=== PATIENT | female | born 1950 | race Caucasian/White ===

== ENCOUNTER 2019-06-01 13:34 | Outpatient (CLI) | payer MEDICARE, SELFPAY ==
--- NOTE | ~2019-06-01 | XR_ITS ---
XR chest 2V DATE: 06/01/2019 13:57 INDICATION: Cough, fever, chills TECHNIQUE: 2 views COMPARISON: 05/28/2014 2 view chest 06/23/2018 CT thorax FINDINGS: Normal heart size. There is aortic calcification and mild unfolding. No hilar or mediastina l enlargement. No pulmonary infiltrate or consolidation, pleural effusion or pulmonary vascular congestion or pneumo thorax is detected. Status post cholecystectomy. Levoscoliosis and mild degenerative change of the thoracic spine. Diffuse osteopenia. IMPRESSION: No active cardiopulmonary disease Aortic atherosclerosis Reviewed, dictated and finalized at location B.
[2019-06-01 13:47] LABS: Basophils Absolute Auto 0.05 K/mm3 (0.00-0.10); Basophils Percent Auto 0.6 % (0.0-1.0); Eosinophils Absolute Auto 0.17 K/mm3 (0.02-0.50); Eosinophils Percent Auto 2.1 % (1.0-6.0); Hematocrit 37.6 % (35.0-42.0); Hemoglobin 12.4 g/dL (11.7-13.8); Immature Granulocyte Absolute 0.05 K/mm3 (0.00-0.00); Immature Granulocyte Percent A 0.6 % (0.0-0.0); Lymphocytes Absolute Auto 2.04 K/mm3 (1.10-4.50); Lymphocytes Percent Auto 24.9 % (18.0-42.0); Mean Corpuscular Volume 90.8 fL (78.0-102.0); Mean Platelet Volume 9.7 fl (9.2-11.8); Monocytes Absolute Auto 0.67 K/mm3 (0.10-0.90); Monocytes Percent Auto 8.2 % (2.0-11.0); Neutrophils Absolute Auto 5.2 K/mm3 (1.7-7.2); Neutrophils Percent Auto 63.6 % (50.0-70.0); Platelet Count Result 347 K/mm3 (150-420); Red Blood Count 4.14 M/mm3 (4.20-5.40); Red Cell Distribution Width 12.4 % (11.6-14.4); White Blood Count 8.2 K/mm3 (4.8-10.8)
[2019-06-01 14:02] LABS: Alanine Aminotransferase 26 U/L (14-59); Albumin Level 3.4 g/dL (3.4-5.0); Alkaline Phosphatase 120 U/L (46-116); Aspartate Amino Transferase 25 U/L (15-37); Bilirubin,Total 0.4 mg/dL (0.00-1.00); Blood Urea Nitrogen 14 mg/dL (7-18); Calcium 8.9 mg/dL (8.5-10.1); Carbon Dioxide 27 mmol/L (21-32); Chloride 101 mmol/L (98-108); Estimated Glomerular Filt Rate 38; Glucose 140 mg/dL (70-99); Osmolality Calculated 284 mOsm/kg (285-295); Sodium 136 mmol/L (136-145); Total Protein 8.1 g/dL (6.4-8.2)
[2019-06-01 14:07] LABS: Influenza Control Valid (Valid)
== END 2019-06-01 13:35 | disposition home or self-care (01) ==
LOC: CHSLAB 13:38
PROVIDERS: PCP Internal Medicine; Visit Provider Internal Medicine
DX: R05 Cough (principal); R50.9 Fever, unspecified
CPT/HCPCS: 36415; 71046; 80053; 85025; 86140; 87081; 87804; 87880

== ENCOUNTER 2019-07-27 08:45 | Outpatient (CLI) | payer MEDICARE, SELFPAY ==
--- NOTE | ~2019-07-27 | CT_ITS ---
EXAMINATION: CT abdomen pelvis wo con DATE: 07/27/2019 09:07 INDICATION: Malignant neoplasm of the right kidney TECHNIQUE: Computed tomography (CT) of the abdomen and pelvis was performed without intravenous contr ast. The dose-length product (DLP) was 502.36 mGy-cm. Automated exposure control and iterative recons truction technique were employed. COMPARISON: 07/04/2017 FINDINGS: The lung bases are clear. The heart size is normal. There is a small sliding hiatal hernia. The gallbladder is surgically absent. There is mild enlargement of the common bile duct and central intrahepatic ducts which is likely due to post cholecystectomy state. The liver, spleen, pancreas, an d left adrenal gland are normal. The right kidney and right adrenal gland are surgically absent. The left kidney is unremarkable. There is calcified atherosclerosis of the aorta and many of the other ar teries. No pathologically enlarged abdominal or pelvic lymph nodes are identified. There is no free i ntraperitoneal gas or evidence of bowel obstruction. There are changes of left inguinal hernia repair . There is mild lumbar spondylosis. There is a tiny fat-containing umbilical hernia. IMPRESSION: 1. Changes of right nephrectomy and right adrenalectomy without evidence of recurrent or metastatic d isease. Reviewed, dictated and finalized at location A. IMPRESSION: 1. Changes of right nephrectomy and right adrenalectomy without evidence of rec urrent or metastatic disease.
[2019-07-27 10:30] LABS: Alanine Aminotransferase 33 U/L (14-59); Albumin Level 3.8 g/dL (3.4-5.0); Alkaline Phosphatase 120 U/L (46-116); Anion Gap 14.4 mmol/L (7-16); Aspartate Amino Transferase 41 U/L (15-37); Bilirubin,Total 0.4 mg/dL (0.00-1.00); Blood Urea Nitrogen 17 mg/dL (7-18); Carbon Dioxide 27 mmol/L (21-32); Chloride 103 mmol/L (98-108); Estimated Glomerular Filt Rate 37; Glucose 93 mg/dL (70-99); Osmolality Calculated 291 mOsm/kg (285-295); Potassium 4.4 mmol/L (3.5-5.1); Sodium 140 mmol/L (136-145); Total Protein 7.2 g/dL (6.4-8.2)
== END 2019-07-27 08:46 | disposition home or self-care (01) ==
PROVIDERS: PCP Internal Medicine
DX: C64.9 Malignant neoplasm of unspecified kidney, except renal pelvis (principal)
CPT/HCPCS: 36415; 74176; 80053

== ENCOUNTER 2019-11-06 08:03 | Outpatient (CLI) | payer MEDICARE, SELFPAY ==
[2019-11-06 08:13] LABS: Basophils Absolute Auto 0.05 K/mm3 (0.00-0.10); Basophils Percent Auto 0.7 % (0.0-1.0); Eosinophils Absolute Auto 0.23 K/mm3 (0.02-0.50); Eosinophils Percent Auto 3.4 % (1.0-6.0); Hematocrit 43.2 % (35.0-42.0); Hemoglobin 14.2 g/dL (11.7-13.8); Immature Granulocyte Absolute 0.03 K/mm3 (0.00-0.00); Immature Granulocyte Percent A 0.4 % (0.0-0.0); Lymphocytes Absolute Auto 1.89 K/mm3 (1.10-4.50); Lymphocytes Percent Auto 28.3 % (18.0-42.0); Mean Corpuscular HGB Conc 32.9 g/dL (32.0-36.0); Mean Corpuscular Hemoglobin 30.7 pg (27.0-31.0); Mean Corpuscular Volume 93.3 fL (78.0-102.0); Mean Platelet Volume 10.9 fl (9.2-11.8); Monocytes Percent Auto 7.5 % (2.0-11.0); Neutrophils Percent Auto 59.7 % (50.0-70.0); Platelet Count Result 228 K/mm3 (150-420); Red Blood Count 4.63 M/mm3 (4.20-5.40); Red Cell Distribution Width 12.2 % (11.6-14.4); White Blood Count 6.7 K/mm3 (4.8-10.8)
[2019-11-06 08:16] LABS: Appearance Urine Clear (Clear); Bilirubin Urine Negative (Negative); Color Urine Yellow (Yellow); Glucose Urine UA Negative (Negative); Ketones Urine Negative (Negative); Leukocyte Esterase Ur Negative LEU/UL (Negative); Nitrate Urine Negative (Negative); Protein Urine Negative (Negative); Urobilinogen Urine 0.2 mg/dL (0.2-1.0)
[2019-11-06 08:23] LABS: Add Urine Microscopic? YES; Bacteria Urine Trace /hpf; Blood Urine Trace-Intact (Negative); RBC Urine None seen /hpf (0-2); Squamous Epithelial Cell Urine Few /hpf (Few); WBC Urine None seen /hpf (0-3)
[2019-11-06 09:18] LABS: Alanine Aminotransferase 33 U/L (14-59); Albumin Level 4.1 g/dL (3.4-5.0); Alkaline Phosphatase 114 U/L (46-116); Anion Gap 10 mmol/L (8-16); Aspartate Amino Transferase 44 U/L (15-37); Bilirubin,Total 0.6 mg/dL (0.00-1.00); Blood Urea Nitrogen 20 mg/dL (7-18); Calcium 9.1 mg/dL (8.5-10.1); Carbon Dioxide 28 mmol/L (21-32); Chloride 104 mmol/L (98-108); Cholesterol 153 mg/dL (0-200); Estimated Glomerular Filt Rate 36; Free T4 Free Thyroxine 1.24 ng/dL (0.76-1.46); Glucose 98 mg/dL (70-99); HDL Direct 40 mg/dL (40-60); LDL Cholesterol Calculated 81 mg/dL (<130); Osmolality Calculated 296 mOsm/kg (285-295); Sodium 142 mmol/L (136-145); Thyroid Stimulating Hormone 0.52 uIU/mL (0.36-3.74); Total Protein 7.6 g/dL (6.4-8.2); Triglycerides 158 mg/dL (0-150)
== END 2019-11-06 08:04 | disposition home or self-care (01) ==
LOC: CHSLAB 08:05
PROVIDERS: PCP Internal Medicine; Visit Provider Internal Medicine
DX: E03.9 Hypothyroidism, unspecified (principal); E78.5 Hyperlipidemia, unspecified; I10 Essential (primary) hypertension; R73.01 Impaired fasting glucose
CPT/HCPCS: 36415; 80053; 80061; 81001; 83036; 84439; 84443; 85025

== ENCOUNTER 2020-07-06 08:06 | Outpatient (CLI) | payer MEDICARE, SELFPAY ==
[2020-07-06 08:35] LABS: Basophils Absolute Auto 0.07 K/mm3 (0.00-0.10); Eosinophils Absolute Auto 0.28 K/mm3 (0.02-0.50); Hematocrit 38.4 % (35.0-42.0); Hemoglobin 12.6 g/dL (11.7-13.8); Immature Granulocyte Absolute 0.03 K/mm3 (0.00-0.00); Immature Granulocyte Percent A 0.4 % (0.0-0.0); Lymphocytes Absolute Auto 1.82 K/mm3 (1.10-4.50); Lymphocytes Percent Auto 25.9 % (18.0-42.0); Mean Corpuscular HGB Conc 32.8 g/dL (32.0-36.0); Mean Corpuscular Volume 94.6 fL (78.0-102.0); Mean Platelet Volume 10.2 fl (9.2-11.8); Monocytes Absolute Auto 0.56 K/mm3 (0.10-0.90); Neutrophils Absolute Auto 4.3 K/mm3 (1.7-7.2); Neutrophils Percent Auto 60.7 % (50.0-70.0); Platelet Count Result 313 K/mm3 (150-420); Red Blood Count 4.06 M/mm3 (4.20-5.40); Red Cell Distribution Width 12.7 % (11.6-14.4)
[2020-07-06 08:41] LABS: Add Urine Microscopic? NO; Appearance Urine Clear (Clear); Bilirubin Urine Negative (Negative); Blood Urine Negative (Negative); Color Urine Yellow (Yellow); Glucose Urine UA Negative (Negative); Ketones Urine Negative (Negative); Leukocyte Esterase Ur Negative LEU/UL (Negative); Nitrate Urine Negative (Negative); Protein Urine Negative (Negative); Specific Grav Ur 1.015 (1.010-1.020); Urobilinogen Urine 0.2 mg/dL (0.2-1.0); pH Urine 5.5 (5.0-8.0)
[2020-07-06 08:47] LABS: Hemoglobin A1C 5.2 % (<5.7)
[2020-07-06 08:49] LABS: Creatinine Urine 76.83 mg/dL (40-278); MALB Creatinine Ratio 127.5 mg/g (0-30)
[2020-07-06 09:35] LABS: Alanine Aminotransferase 28 U/L (14-59); Albumin Level 3.7 g/dL (3.4-5.0); Alkaline Phosphatase 118 U/L (46-116); Anion Gap 9 mmol/L (8-16); Aspartate Amino Transferase 30 U/L (15-37); Bilirubin,Total 0.4 mg/dL (0.00-1.00); Blood Urea Nitrogen 19 mg/dL (7-18); Calcium 9.2 mg/dL (8.5-10.1); Carbon Dioxide 28 mmol/L (21-32); Chloride 103 mmol/L (98-108); Cholesterol 142 mg/dL (0-200); Creatine Kinase 127 U/L (26-192); Estimated Glomerular Filt Rate 43; Free T3 2.09 pg/mL (2.18-3.98); Free T4 Free Thyroxine 1.21 ng/dL (0.76-1.46); Glucose 99 mg/dL (70-99); HDL Direct 45 mg/dL (40-60); LDL Cholesterol Calculated 78 mg/dL (<130); Osmolality Calculated 292 mOsm/kg (285-295); Potassium 4.9 mmol/L (3.5-5.1); Sodium 140 mmol/L (136-145); Thyroid Stimulating Hormone 1.52 uIU/mL (0.36-3.74); Total Protein 7.4 g/dL (6.4-8.2); Triglycerides 96 mg/dL (0-150)
== END 2020-07-06 08:07 | disposition home or self-care (01) ==
LOC: CHSLAB 08:07
PROVIDERS: PCP Internal Medicine; Visit Provider Internal Medicine
DX: E03.4 Atrophy of thyroid (acquired) (principal); I10 Essential (primary) hypertension; E78.2 Mixed hyperlipidemia; R73.01 Impaired fasting glucose; N39.0 Urinary tract infection, site not specified
CPT/HCPCS: 36415; 80053; 80061; 81003; 82043; 82550; 83036; 84439; 84443; 84481; 85025

== ENCOUNTER 2020-08-09 09:37 | Outpatient (CLI) | payer MEDICARE, SELFPAY ==
[2020-08-09 10:28] LABS: Influenza A QL RT-PCR Negative (Negative); Influenza B QL RT-PCR Negative (Negative); SARS-CoV-2 RNA PCR Negative (Negative)
== END 2020-08-09 09:38 | disposition home or self-care (01) ==
LOC: CHSLAB 09:39
PROVIDERS: PCP Internal Medicine; Visit Provider Internal Medicine
DX: R06.02 Shortness of breath (principal); R50.9 Fever, unspecified; R05 Cough; Z20.822 Contact with and (suspected) exposure to COVID-19
CPT/HCPCS: 87502; C9803; U0003; U0005

== ENCOUNTER 2020-08-10 09:19 | Outpatient (CLI) | payer MEDICARE, SELFPAY ==
--- NOTE | ~2020-08-10 | CT_ITS ---
EXAMINATION:CT lung screening DATE: 08/10/2020 10:50 INDICATION: Personal history of tobacco dependence. Smoker who quit 12 years ago with 40 pack year hi story. TECHNIQUE: Computed tomography (CT) of the chest was performed without intravenous contrast. Automate d exposure control and iterative reconstruction technique were employed. The dose-length product (DLP ) was 129.40 mGy-cm. COMPARISON: Chest CT 06/23/2018 FINDINGS: There is mild emphysema. There is a staple line in right upper lobe. There are patchy airsp bryce and groundglass opacities and centrilobular nodules involving the lower lobes and left upper lobe , consistent with pneumonia. There is a trace left pleural effusion. The heart size is normal. There are coronary artery calcifications. No pericardial effusion. There is new mild mediastinal lymphadeno avis, likely reactive. There are changes of cholecystectomy. There are changes of at least partial r esection of right adrenal gland. There is severe thoracic spondylosis. IMPRESSION: 1. Lung-RADS category 4A: Suspicious. Note that the findings are likely completely or mostly due to m ultifocal pneumonia. Noncontrast, low-dose chest CT is recommended in 3 months. Reviewed, dictated and finalized at location B. IMPRESSION: 1. Lung-RADS category 4A: Suspicious. Note that the findings are likely complet anupam or mostly due to multifocal pneumonia. Noncontrast, low-dose chest CT is re commended in 3 months.
--- NOTE | ~2020-08-10 | MM_ITS ---
EXAMINATION: MM screening charlie BI w sonali HISTORY: Screening mammogram, family history of breast cancer in her sister. TECHNIQUE: Craniocaudal and mediolateral oblique 3-D tomosynthesis images were obtained and synthetic 2-D images were generated. CAD analysis was submitted and interpreted. COMPARISON: 12/31/2017, 11/21/2016 BREAST PARENCHYMAL COMPOSITION: The breasts are heterogeneously dense, which may obscure small masses . FINDINGS: There is no evidence of suspicious mass, calcification, or architectural distortion to sugg est malignancy in either breast. There has been no suspicious interval change. IMPRESSION: 1. No mammographic evidence of malignancy. 2. Recommend routine screening mammography in one year. BI-RADS Category 1: Negative Reviewed, dictated and finalized at location A.
--- NOTE | ~2020-08-10 | US_ITS ---
EXAMINATION: US carotid duplex BI DATE: 08/10/2020 12:29 INDICATION: Carotid stenosis TECHNIQUE: Grayscale, color Doppler, and pulsed Doppler images of the cervical carotid arteries were obtained. The degree of vessel stenosis is placed in one of the following categories: normal, <50%, 5 0-69%, >=70% but less than near-occlusion, near-occlusion, or total occlusion. Note that percent sten osis relative to normal distal artery lumen diameter is indirectly measured from velocity measurement s as described by Gabriel, et al. Radiology 2003; 229:340-346. COMPARISON: None. FINDINGS: RIGHT: The right common carotid artery (CCA) peak systolic velocity (PSV) is 73 cm/s. The right internal car otid artery (ICA) PSV is 86 cm/s. The right ICA end-diastolic velocity (EDV) is 21 cm/s. The right IC A/CCA PSV ratio is 1.2. Grayscale and color Doppler images yield an estimate of <50% diameter reducti on from plaque in the ICA. The external carotid artery (ECA) PSV is 52 cm/s. There is antegrade flow in the right vertebral artery. LEFT: The left CCA PSV is 169 cm/s. The left ICA PSV is 79 cm/s. The left ICA EDV is 22 cm/s. The left ICA/ CCA PSV ratio is 0.5. Grayscale and color Doppler images yield an estimate of <50% diameter reduction from plaque in the ICA. The ECA PSV is 126 cm/s. There appears be antegrade flow in the more caudal left vertebral artery with retrograde flow more cephalad on the other side of a shadowing portion of a cervical vertebrae. It is unclear whether these both represent portions of the same vertebral arter y or whether one of the 2 artery segments represents an artery other than the vertebral artery. IMPRESSION: 1. <50% stenosis in the right internal carotid artery. 2. <50% stenosis in the left internal carotid artery. 3. Indeterminate assessment of the left vertebral artery with separate arterial segments in the expec jj region of the vertebral artery, one showing antegrade flow and the second showing retrograde flow . If this would affect clinical management could consider carotid CT angiogram for further evaluation . Reviewed, dictated and finalized at location A. IMPRESSION: 1. <50% stenosis in the right internal carotid artery. 2. <50% stenosis in the left internal carotid artery. 3. Indeterminate assessment of the left vertebral artery with separate arterial segments in the expected region of the vertebral artery, one showing antegrade flow and the second showing retrograde flow. If this would affect clinical man agement could consider carotid CT angiogram for further evaluation.
--- NOTE | ~2020-08-10 | DEXA_ITS ---
Bone Density Report Name: Stacy Pina Age: 69 Sex: Female Ethnicity: White Date of : 1950 Indication: postmenopausal; screening for osteoporosis; height loss; cancer; asthma or emphysema; hysterectomy; Referring Provider: Laine Echeverria Study: Bone densitometry was performed. Exam Date: August 10, 2020 Accession number: [id number] Bone Density: Region BMD T-score Z-score Classification AP Spine(L1, L2, L3) 0.923 -0.9 1.2 Normal Femoral Neck (Left) 0.737 -1.0 0.8 Normal Total Hip (Left) 0.810 -1.1 0.5 Osteopenia Femoral Neck (Right) 0.763 -0.8 1.1 Normal Total Hip (Right) 0.841 -0.8 0.7 Normal Femoral Neck Mean 0.750 -0.9 0.9 Normal Total Hip Mean 0.826 -1.0 0.6 Normal World Health Organization criteria for BMD impression classify patients as: Normal (T-score at or above -1.0), Osteopenia (T-score between -1.0 and -2.5), or Osteoporosis (T-score at or below -2.5). 10-year Fracture Risk(1): Major Osteoporotic Fracture 8.9% Hip Fracture 1.0% Reported Risk Factors: [place] (), Neck BMD=0.737, BMI=24.4 (1) FRAX(R) Version 3.08. Fracture probability calculated for an untreated patient. Fracture probability may be lower if the patient has received treatment. Previous Exams: Region Exam Age BMD T-score BMD Change BMD Change Date g/cm2 vs Baseline vs Previous AP Spine (L1-L3) 08/10/2020 69 0.923 -0.9 0.020 (2.2%)# 0.020 (2.2%)# 11/21/2016 66 0.904 -1.0 Total Hip(Left) 08/10/2020 69 0.810 -1.1 -0.043 (-5.0%) -0.043 (-5.0%) 11/21/2016 66 0.853 -0.7 *Denotes significance at 95% confidence level, LSC for AP Spine = 0.022 g/cm2, LSC for Total Hip = 0.027 g/cm2 # Denotes dissimilar scan types or analysis methods Clinical Information Provided by Patient: Has used the following medications: Vitamin D Has the following medical conditions: Asthma or Emphysema, Cancer, Hysterectomy Patient maximum height was 142 No regular weight bearing exercise Drinks caffeinated beverages Onset of menses at age 12 Number of children 2 Impression: The patient has low bone mass, based on the Left Total Hip T-score. No significant bone loss was observed. Discussion: BONE DENSITY IS LOW AT ONE OR MORE SKELETAL SITES. This patient's lowest T-score is low at one or more skeletal sites. It meets the World Health Organization's (WHO) criteria for ?low bone mass? (T-score between -1.0 and -2.5). The patient's 10-year risk of fracture as calcul
[2020-08-10 14:50] LABS: Basophils Absolute Auto 0.06 K/mm3 (0.00-0.10); Basophils Percent Auto 0.5 % (0.0-1.0); Eosinophils Absolute Auto 0.24 K/mm3 (0.02-0.50); Eosinophils Percent Auto 1.8 % (1.0-6.0); Hematocrit 32.8 % (35.0-42.0); Hemoglobin 10.7 g/dL (11.7-13.8); Immature Granulocyte Absolute 0.12 K/mm3 (0.00-0.00); Immature Granulocyte Percent A 0.9 % (0.0-0.0); Lymphocytes Absolute Auto 2.46 K/mm3 (1.10-4.50); Lymphocytes Percent Auto 18.9 % (18.0-42.0); Mean Corpuscular HGB Conc 32.6 g/dL (32.0-36.0); Mean Corpuscular Hemoglobin 29.8 pg (27.0-31.0); Mean Corpuscular Volume 91.4 fL (78.0-102.0); Mean Platelet Volume 9.5 fl (9.2-11.8); Monocytes Absolute Auto 0.98 K/mm3 (0.10-0.90); Monocytes Percent Auto 7.5 % (2.0-11.0); Neutrophils Absolute Auto 9.2 K/mm3 (1.7-7.2); Neutrophils Percent Auto 70.4 % (50.0-70.0); Platelet Count Result 341 K/mm3 (150-420); Red Blood Count 3.59 M/mm3 (4.20-5.40); Red Cell Distribution Width 12.6 % (11.6-14.4)
[2020-08-10 15:59] LABS: Alanine Aminotransferase 30 U/L (14-59); Alkaline Phosphatase 110 U/L (46-116); Anion Gap 10 mmol/L (8-16); Aspartate Amino Transferase 32 U/L (15-37); Bilirubin,Total 0.3 mg/dL (0.00-1.00); Blood Urea Nitrogen 11 mg/dL (7-18); Calcium 8.2 mg/dL (8.5-10.1); Carbon Dioxide 25 mmol/L (21-32); Chloride 104 mmol/L (98-108); Estimated Glomerular Filt Rate 46; Glucose 104 mg/dL (70-99); Osmolality Calculated 287 mOsm/kg (285-295); Sodium 139 mmol/L (136-145); Total Protein 6.5 g/dL (6.4-8.2)
== END 2020-08-10 09:20 | disposition home or self-care (01) ==
PROVIDERS: PCP Internal Medicine; Visit Provider Internal Medicine
DX: J18.9 Pneumonia, unspecified organism (principal); Z12.2 Encounter for screening for malignant neoplasm of respiratory organs; Z87.891 Personal history of nicotine dependence; M81.0 Age-related osteoporosis without current pathological fracture; I65.29 Occlusion and stenosis of unspecified carotid artery; Z12.31 Encounter for screening mammogram for malignant neoplasm of breast
CPT/HCPCS: 36415; 71271; 77063; 77067; 77080; 80053; 85025; 93880

== ENCOUNTER 2020-08-19 12:31 | Outpatient (CLI) | payer MEDICARE, SELFPAY ==
--- NOTE | ~2020-08-19 | XR_ITS ---
EXAMINATION: XR chest 2V EXAM DATE: 08/19/2020 12:52 INDICATION: Pneumonia follow up, cough . TECHNIQUE: Frontal and lateral projections of the chest obtained and reviewed. Comparison is made to prior examination from 06/01/2019. FINDINGS: Small amount of left midlung zone reticulonodular airspace disease, probably small residua l postinfectious process from pneumonia identified last month on CT. The lungs are otherwise clear. There are no pleural effusions. The cardiomediastinal silhouette is within normal limits. There is no pneumothorax suspected. Mild thoracolumbar scoliosis. There are cholecystectomy clips. IMPRESSION: Small amount of left midlung zone residual pneumonia. Follow-up chest low dose chest CT i n 3 months time still indicated. Reviewed, dictated and finalized at location B. IMPRESSION: Small amount of left midlung zone residual pneumonia. Follow-up liana st low dose chest CT in 3 months time still indicated.
[2020-08-19 12:42] LABS: Basophils Absolute Auto 0.07 K/mm3 (0.00-0.10); Basophils Percent Auto 0.7 % (0.0-1.0); Eosinophils Absolute Auto 0.27 K/mm3 (0.02-0.50); Eosinophils Percent Auto 2.7 % (1.0-6.0); Hematocrit 34.7 % (35.0-42.0); Hemoglobin 11.5 g/dL (11.7-13.8); Immature Granulocyte Absolute 0.05 K/mm3 (0.00-0.00); Immature Granulocyte Percent A 0.5 % (0.0-0.0); Lymphocytes Absolute Auto 2.03 K/mm3 (1.10-4.50); Lymphocytes Percent Auto 20.4 % (18.0-42.0); Mean Corpuscular HGB Conc 33.1 g/dL (32.0-36.0); Mean Corpuscular Hemoglobin 30.4 pg (27.0-31.0); Mean Corpuscular Volume 91.8 fL (78.0-102.0); Mean Platelet Volume 9.7 fl (9.2-11.8); Monocytes Absolute Auto 0.79 K/mm3 (0.10-0.90); Monocytes Percent Auto 7.9 % (2.0-11.0); Neutrophils Absolute Auto 6.8 K/mm3 (1.7-7.2); Neutrophils Percent Auto 67.8 % (50.0-70.0); Platelet Count Result 360 K/mm3 (150-420); Red Blood Count 3.78 M/mm3 (4.20-5.40); Red Cell Distribution Width 12.7 % (11.6-14.4)
[2020-08-19 13:14] LABS: Alanine Aminotransferase 24 U/L (14-59); Albumin Level 3.3 g/dL (3.4-5.0); Alkaline Phosphatase 109 U/L (46-116); Anion Gap 13 mmol/L (8-16); Aspartate Amino Transferase 26 U/L (15-37); Bilirubin,Total 0.3 mg/dL (0.00-1.00); Blood Urea Nitrogen 25 mg/dL (7-18); Calcium 8.6 mg/dL (8.5-10.1); Carbon Dioxide 24 mmol/L (21-32); Chloride 100 mmol/L (98-108); Estimated Glomerular Filt Rate 35; Glucose 96 mg/dL (70-99); Osmolality Calculated 288 mOsm/kg (285-295); Potassium 4.6 mmol/L (3.5-5.1); Sodium 137 mmol/L (136-145); Total Protein 6.8 g/dL (6.4-8.2)
== END 2020-08-19 12:32 | disposition home or self-care (01) ==
LOC: CHSIMG 12:33
PROVIDERS: PCP Internal Medicine; Visit Provider Internal Medicine
DX: J18.9 Pneumonia, unspecified organism (principal)
CPT/HCPCS: 36415; 71046; 80053; 85025

== ENCOUNTER 2020-09-02 12:17 | Outpatient (CLI) | payer MEDICARE, SELFPAY ==
--- NOTE | ~2020-09-02 | XR_ITS ---
XR chest 2V 09/02/2020 12:33 Indication: Pneumonia. Shortness of breath. Procedure: 08/19/2020 Comparison: 08/19/2020 Findings: Right middle lobe airspace disease, compatible with pneumonia. No pleural effusion, edema o r pneumothorax. Impression: 1: Right middle lobe airspace disease, compatible with pneumonia. Reviewed, dictated and finalized at location A. Impression: 1: Right middle lobe airspace disease, compatible with pneumonia.
[2020-09-02 13:40] LABS: Alanine Aminotransferase 24 U/L (14-59); Albumin Level 3.5 g/dL (3.4-5.0); Alkaline Phosphatase 103 U/L (46-116); Anion Gap 12 mmol/L (8-16); Aspartate Amino Transferase 28 U/L (15-37); Bilirubin,Total 0.6 mg/dL (0.00-1.00); Blood Urea Nitrogen 22 mg/dL (7-18); Calcium 8.6 mg/dL (8.5-10.1); Carbon Dioxide 24 mmol/L (21-32); Chloride 101 mmol/L (98-108); Estimated Glomerular Filt Rate 37; Glucose 98 mg/dL (70-99); Osmolality Calculated 287 mOsm/kg (285-295); Potassium 4.3 mmol/L (3.5-5.1); Sodium 137 mmol/L (136-145); Total Protein 6.8 g/dL (6.4-8.2)
== END 2020-09-02 12:18 | disposition home or self-care (01) ==
LOC: CHSLAB 12:19
PROVIDERS: PCP Internal Medicine; Visit Provider Internal Medicine
DX: R79.89 Other specified abnormal findings of blood chemistry (principal); Z51.89 Encounter for other specified aftercare; J18.9 Pneumonia, unspecified organism
CPT/HCPCS: 36415; 71046; 80053

== ENCOUNTER 2020-10-05 10:00 | Outpatient (CLI) | payer MEDICARE, SELFPAY ==
--- NOTE | ~2020-10-05 | XR_ITS ---
XR chest 2V DATE: 10/05/2020 10:23 INDICATION: Pneumonia follow-up. History of right lung surgery. TECHNIQUE: PA and lateral views COMPARISON: 09/02/2020 2 view chest FINDINGS: There is interval resolution of the middle lobe infiltrate or atelectasis in 09/02/2020. Moderate hyperinflation of the lungs. Sutures from lung resection are noted in the posterior right upper lung field. No pulmonary infiltrate or consolidation, pleural effusion or pulmonary vascular congestion or pneumo thorax. Normal heart size. Is aortic calcification and mild unfolding. Surgical clips, right upper quadrant, likely due to cholecystectomy. Diffuse osteopenia. IMPRESSION: Resolution of middle lobe infiltrate or atelectasis since 09/02/2020 Postoperative change of right lung Reviewed, dictated and finalized at location A.
== END 2020-10-05 10:01 | disposition home or self-care (01) ==
LOC: CHSIMG 10:03
PROVIDERS: PCP Internal Medicine; Visit Provider Internal Medicine
DX: J18.9 Pneumonia, unspecified organism (principal)
CPT/HCPCS: 71046

== ENCOUNTER 2021-02-24 08:48 | Outpatient (CLI) | payer MEDICARE, SELFPAY ==
[2021-02-24 09:09] LABS: Basophils Absolute Auto 0.06 K/mm3 (0.00-0.10); Basophils Percent Auto 0.7 % (0.0-1.0); Eosinophils Absolute Auto 0.38 K/mm3 (0.02-0.50); Eosinophils Percent Auto 4.7 % (1.0-6.0); Hematocrit 41.3 % (35.0-42.0); Hemoglobin 13.4 g/dL (11.7-13.8); Immature Granulocyte Absolute 0.03 K/mm3 (0.00-0.00); Immature Granulocyte Percent A 0.4 % (0.0-0.0); Lymphocytes Absolute Auto 1.51 K/mm3 (1.10-4.50); Lymphocytes Percent Auto 18.6 % (18.0-42.0); Mean Corpuscular HGB Conc 32.4 g/dL (32.0-36.0); Mean Corpuscular Volume 92.4 fL (78.0-102.0); Mean Platelet Volume 10.5 fl (9.2-11.8); Monocytes Absolute Auto 0.67 K/mm3 (0.10-0.90); Monocytes Percent Auto 8.2 % (2.0-11.0); Neutrophils Absolute Auto 5.5 K/mm3 (1.7-7.2); Neutrophils Percent Auto 67.4 % (50.0-70.0); Platelet Count Result 280 K/mm3 (150-420); Red Blood Count 4.47 M/mm3 (4.20-5.40); Red Cell Distribution Width 12.6 % (11.6-14.4); White Blood Count 8.1 K/mm3 (4.8-10.8)
[2021-02-24 09:14] LABS: Appearance Urine Clear (Clear); Bilirubin Urine Negative (Negative); Color Urine Light Yellow (Yellow); Glucose Urine UA Negative (Negative); Ketones Urine Negative (Negative); Leukocyte Esterase Ur Negative (Negative); Nitrate Urine Negative (Negative); Protein Urine Negative (Negative); Specific Grav Ur 1.015 (1.010-1.020); Urobilinogen Urine 0.2 mg/dL (0.2-1.0)
[2021-02-24 09:27] LABS: Add Urine Microscopic? YES; Blood Urine Trace-Intact (Negative); Hemoglobin A1C 5.9 % (<5.7); Squamous Epithelial Cell Urine Few /hpf (Few); WBC Urine 0-3 /hpf (0-3)
[2021-02-24 09:28] LABS: Bacteria Urine Trace /hpf
[2021-02-24 10:13] LABS: Alanine Aminotransferase 28 U/L (14-59); Albumin Level 3.7 g/dL (3.4-5.0); Alkaline Phosphatase 125 U/L (46-116); Anion Gap 9 mmol/L (8-16); Aspartate Amino Transferase 33 U/L (15-37); Bilirubin,Total 0.5 mg/dL (0.00-1.00); Blood Urea Nitrogen 17 mg/dL (7-18); Carbon Dioxide 29 mmol/L (21-32); Chloride 102 mmol/L (98-108); Cholesterol 189 mg/dL (0-200); Creatine Kinase 190 U/L (26-192); Estimated Glomerular Filt Rate 39; Free T4 Free Thyroxine 1.05 ng/dL (0.76-1.46); Glucose 91 mg/dL (70-99); HDL Direct 56 mg/dL (40-60); LDL Cholesterol Calculated 101 mg/dL (<130); Osmolality Calculated 291 mOsm/kg (285-295); Potassium 4.5 mmol/L (3.5-5.1); Sodium 140 mmol/L (136-145); Thyroid Stimulating Hormone 1.92 uIU/mL (0.36-3.74); Total Protein 7.6 g/dL (6.4-8.2); Triglycerides 162 mg/dL (0-150)
== END 2021-02-24 08:49 | disposition home or self-care (01) ==
LOC: CHSLAB 08:50
PROVIDERS: PCP Internal Medicine; Visit Provider Internal Medicine
DX: M81.0 Age-related osteoporosis without current pathological fracture (principal); R73.01 Impaired fasting glucose; E78.2 Mixed hyperlipidemia; E03.4 Atrophy of thyroid (acquired); N18.2 Chronic kidney disease, stage 2 (mild)
CPT/HCPCS: 36415; 80053; 80061; 81001; 82550; 83036; 84439; 84443; 85025

== ENCOUNTER 2021-03-20 10:50 | Outpatient (CLI) | payer MEDICARE, SELFPAY ==
[2021-03-20 11:41] LABS: Add Urine Microscopic? NO; Appearance Urine Clear (Clear); Bilirubin Urine Negative (Negative); Blood Urine Negative (Negative); Color Urine Light Yellow (Yellow); Glucose Urine UA Negative (Negative); Ketones Urine Negative (Negative); Leukocyte Esterase Ur Negative (Negative); Nitrate Urine Negative (Negative); Protein Urine Negative (Negative); Urobilinogen Urine 0.2 mg/dL (0.2-1.0)
== END 2021-03-20 10:51 | disposition home or self-care (01) ==
LOC: CHSLAB 10:52
PROVIDERS: PCP Internal Medicine; Visit Provider Internal Medicine
DX: R31.29 Other microscopic hematuria (principal)
CPT/HCPCS: 81003; 88112

== ENCOUNTER 2021-07-17 07:52 | Outpatient (CLI) | payer MEDICARE, SELFPAY ==
--- NOTE | 2021-07-17 09:00 | EST_ITS ---
Patient Info Name: Stacy Pina Age: 70 years : 1950 Gender: Female Ht: 64 in Wt: 156 lbs BSA: 1.80 m2 HR: 48 bpm BP: 157 / 73 mmHg Heart Rhythm: Bradycardia Technical Quality: Good Exam Date: 07/17/2021 8:50 AM Exam Location: [facility] Patient Status: Outpatient Admit Date: 07/17/2021 Staff Ordering Physician: Abdiel, Sulma Pierre APRN Attending Provider: Abdiel, Sulma Pierre APRN Exercise Technologist: Rosa Pulido CRT Exercise Physician: Yumi Bender CEP Exam Type: CA stress roxanne w NM Study Info Indications AbnormalEKG - Hypertension - ChestPain - An exercise stress test was performed. History/Risk Factors Hypertension: Yes History/Risk Factors Hypertension. Chest Pain. Summary 1. 1. Negative Irineo exercise stress test for ischemic ST changes by ECG criteria. 2. 2. Good functional capacity, achieving 9 METs of workload. 3. 3. Baseline hypertension with hypertensive response to exercise. 4. 4. Appropriate HR response to exercise. 5. 5. Appropriate HR recovery at 1 minute post exercise. 6. 6. Nuclear scan to follow and will be reported separately. Please correlate with it. Protocol: Irineo Stress ECG Details Stage: REST Duration (min): 1 min : 4 sec Speed (mph): 0.0 Grade (%): 0 HR (bpm): 50 SBP (mmHg): 157 DBP (mmHg): 73 METS: --- Stage: REST Duration (min): 7 min : 44 sec Speed (mph): 0.0 Grade (%): 0 HR (bpm): 56 SBP (mmHg): 157 DBP (mmHg): 73 METS: --- Stage: STAGE 1 Duration (min): 1 min : 0 sec Speed (mph): 1.7 Grade (%): 10 HR (bpm): 74 SBP (mmHg): 157 DBP (mmHg): 73 METS: --- Stage: STAGE 1 Duration (min): 2 min : 0 sec Speed (mph): 1.7 Grade (%): 10 HR (bpm): 83 SBP (mmHg): 157 DBP (mmHg): 73 METS: --- Stage: STAGE 1 Duration (min): 3 min : 0 sec Speed (mph): 1.7 Grade (%): 10 HR (bpm): 88 SBP (mmHg): 195 DBP (mmHg): 59 METS: --- Stage: STAGE 2 Duration (min): 1 min : 0 sec Speed (mph): 2.5 Grade (%): 12 HR (bpm): 93 SBP (mmHg): 195 DBP (mmHg): 59 METS: --- Stage: STAGE 2 Duration (min): 2 min : 0 sec Speed (mph): 2.5 Grade (%): 12 HR (bpm): 101 SBP (mmHg): 195 DBP (mmHg): 59 METS: --- Stage: STAGE 2 Duration (min): 3 min : 0 sec Speed (mph): 2.5 Grade (%): 12 HR (bpm): 108 SBP (mmHg): 220 DBP (mmHg): 59 METS: --- Stage: STAGE 3 Duration (min): 1 min : 0 sec Speed (mph): 3.4 Grade (%): 14 HR (bpm): 122 SBP (mmHg): 220 DBP (mmHg): 59 METS: --- Stage: STAGE 3 Duration (min): 1 min : 27 sec Speed (mph): 3.4 Grade (%): 14 HR (bpm): 124 SBP (mmHg): 220 DBP (mmHg): 59 METS: --- Stage: RECOVERY Duration (min): 0 min : 32 sec Speed (mph): 0.0 Grade (%): 0 HR (bpm): 126 SBP (mmHg): 220 DBP (mmHg): 59 METS: ---
--- NOTE | 2021-07-17 12:48 | WPDCARIOSTRE ---
Nuclear Stress Test INDICATIONS Indications: Abnormal EKG PROCEDURE Procedure Performed: Myocardial Perf Spect-Multi Procedure: Patient exercised on a standard Irineo protocol and at peak HR was injected with 33.3 mCi of cardiolyte. Multiple tomographic images were obtained. These are of good quality. There is evidence of moderate size, moderate severity anterior perfusion defect during stress imaging. A separate resting images were obtained after patient was injected with 10.9 mCi of cardiolyte. Multiple tomographic images were obtained. These are of good quality. There is evidence of moderate size, moderate severity anterior perfusion defect during rest imaging. CONCLUSION Conclusion: 1. Myocardial perfusion imaging demonstrating a fixed moderate size anterior perfusion defect which is suggestive of breast attunation artifact. 2. No evidence of reversible ischemia. 3. Left ventriculogram demonstrates normal measured ejection fraction of 70%. No wall motion abnormalities. 4. TID score is normal at 1.14.
== END 2021-07-17 07:53 | disposition home or self-care (01) ==
LOC: CHSCARD 07:55
PROVIDERS: PCP Internal Medicine; Visit Provider Internal Medicine Cardiovascular Disease
DX: R94.31 Abnormal electrocardiogram [ECG] [EKG] (principal); R07.9 Chest pain, unspecified; I10 Essential (primary) hypertension
CPT/HCPCS: 78452; 93017; A9502

== ENCOUNTER 2022-03-02 12:48 | Outpatient (CLI) | payer MEDICARE, SELFPAY ==
--- NOTE | ~2022-03-02 | XR_ITS ---
Lumbosacral Spine: AP and lateral views Clinical History: Pain, sciatica Findings: The normal lordotic curve is maintained. No fracture or subluxation seen. There is mild to moderate degenerative disc narrowing at L2 and L3. There are facet joint degenerative changes from L3 through S1. The sacroiliac joints are normally outlined. Extensive aortic calcifications are noted. Impression: Mild degenerative changes, as detailed above. Reviewed, dictated and finalized at location [] OR ASSOCIATE Impression: Mild degenerative changes, as detailed above.
--- NOTE | ~2022-03-02 | CT_ITS ---
EXAMINATION:CT lung screening DATE: 03/02/2022 13:16 INDICATION: Personal history of nicotine dependence. Smoker who quit 13 years ago with 40 pack year h istory. TECHNIQUE: Computed tomography (CT) of the chest was performed without intravenous contrast. Automate d exposure control and iterative reconstruction technique were employed. The dose-length product (DLP ) was 65.99 mGy-cm. COMPARISON: Chest CT 08/10/2020 FINDINGS: There is mild emphysema. There are changes of right upper lobectomy. There are centrilobula r groundglass opacities in right lower lobe. A calcified left lung nodule is consistent with old gran ulomatous disease. There is a stable 4 mm nodule in left upper lobe. No pleural effusion. The heart s ize is normal. There are coronary artery calcifications. No pericardial effusion. There is a small sl iding hiatal hernia. There are changes of cholecystectomy. There are changes of right nephrectomy. Th ere is severe thoracic spondylosis. Thoracic levoscoliosis is noted. IMPRESSION: 1. Lung-RADS category 2: Benign appearance or behavior. Continue annual screening with noncontrast lo w-dose chest CT in 12 months. Reviewed, dictated and finalized at location A. 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 Lung-RADS category 2: Benign appearance or behavior. Continue annual screeni ng with noncontrast low-dose chest CT in 12 months.
--- NOTE | ~2022-03-02 | MM_ITS ---
EXAMINATION: MM screening charlie BI w sonali HISTORY: Screening TECHNIQUE: Craniocaudal and mediolateral oblique 3-D tomosynthesis images were obtained and synthetic 2-D images were generated. CAD analysis was submitted and interpreted. COMPARISON: Comparison to multiple prior studies sequentially, with oldest reviewed study dated 08/2016. BREAST PARENCHYMAL COMPOSITION: There are scattered areas of fibroglandular density. FINDINGS: There is no evidence of suspicious mass, calcification, or architectural distortion to sugg est malignancy in either breast. There has been no suspicious interval change. IMPRESSION: 1. No mammographic evidence of malignancy. 2. Recommend routine screening mammography in one year. BI-RADS Category 1: Negative Reviewed, dictated and finalized at location B. E ARTIST
== END 2022-03-02 12:49 | disposition home or self-care (01) ==
LOC: CHSIMG 12:51
PROVIDERS: PCP Internal Medicine; Visit Provider Internal Medicine
DX: Z12.2 Encounter for screening for malignant neoplasm of respiratory organs (principal); Z87.891 Personal history of nicotine dependence; M54.16 Radiculopathy, lumbar region; Z12.31 Encounter for screening mammogram for malignant neoplasm of breast
CPT/HCPCS: 71271; 72100; 77063; 77067

== ENCOUNTER 2022-08-01 10:52 | Outpatient (CLI) | payer MEDICARE, SELFPAY ==
--- NOTE | ~2022-08-01 | XR_ITS ---
XR chest 2V 08/01/2022 11:06 Indication: Shortness of breath. COPD. Procedure: 2 view chest Comparison: Comparison to multiple prior studies sequentially, with oldest reviewed study dated 05/31. Findings: Heart size normal. No focal air space disease, pulmonary edema, pleural effusion or suspect ed pneumothorax. There is atherosclerosis. No acute osseous abnormality. There are surgical changes i n the right upper lobe. Impression: 1: No acute cardiopulmonary disease. Reviewed, dictated and finalized at location B. Impression: 1: No acute cardiopulmonary disease.
== END 2022-08-01 10:53 | disposition home or self-care (01) ==
LOC: CHSIMG 10:53
PROVIDERS: PCP Internal Medicine; Visit Provider Internal Medicine
DX: J44.1 Chronic obstructive pulmonary disease with (acute) exacerbation (principal)
CPT/HCPCS: 71046

== ENCOUNTER 2022-08-22 08:33 | Outpatient (CLI) | payer MEDICARE, SELFPAY ==
--- NOTE | ~2022-08-22 | DEXA_ITS ---
Bone Density Report Name: MELL DUMONT Age: 71 Sex: Female Ethnicity: White Date of : 1950 Indication: postmenopausal; screening for osteoporosis; parental hip fracture; height loss; cancer; asthma or emphysema; hysterectomy; Referring Provider: Laine Echeverria Study: Bone densitometry was performed. Exam Date: August 22, 2022 Accession number: [id number] Bone Density: Region BMD T-score Z-score Classification AP Spine(L1, L2, L3) 0.895 -1.1 1.1 Osteopenia Femoral Neck (Left) 0.699 -1.4 0.6 Osteopenia Total Hip (Left) 0.759 -1.5 0.2 Osteopenia Femoral Neck (Right) 0.706 -1.3 0.7 Osteopenia Total Hip (Right) 0.808 -1.1 0.6 Osteopenia Femoral Neck Mean 0.702 -1.3 0.6 Osteopenia Total Hip Mean 0.784 -1.3 0.4 Osteopenia World Health Organization criteria for BMD impression classify patients as: Normal (T-score at or above -1.0), Osteopenia (T-score between -1.0 and -2.5), or Osteoporosis (T-score at or below -2.5). 10-year Fracture Risk(1): Major Osteoporotic Fracture 16% Hip Fracture 4.9% Reported Risk Factors: [place] (), Neck BMD=0.699, BMI=26.7, parental fracture (1) FRAX(R) Version 3.08. Fracture probability calculated for an untreated patient. Fracture probability may be lower if the patient has received treatment. Clinical Information Provided by Patient: Parent has had a hip fracture Has used the following medications: Vitamin D Has the following medical conditions: Asthma or Emphysema, Cancer, Hysterectomy Patient maximum height was 64 Menopause Age: 54 No regular weight bearing exercise Drinks caffeinated beverages Onset of menses at age 12 Number of children 2 Impression: The patient has low bone mass, based on the Left Total Hip T-score. The patient has risk factors, including: parental hip fracture. Discussion: BONE DENSITY IS LOW AT ONE OR MORE SKELETAL SITES. This patient's lowest T-score is low at one or more skeletal sites. It meets the World Health Organization's (WHO) criteria for ?low bone mass? (T-score between -1.0 and -2.5). The patient's 10-year risk of fracture as calculated by FRAX is less than the threshold where pharmacological therapy is recommended by the National Osteoporosis Foundation (NOF). However, all treatment decisions require clinical judgment and consideration of individual patient factors, including patient preferences, comorbidities, previous drug use, risk factors not captured in the FRAX model (e.g., frailty, falls, vitamin D deficiency, increased bone turnover, interval significant decline in bone density) and possible under or overestimation of fracture risk by FRAX. The patient should follow a healthful lifestyle (good nutrition with adequate calcium and vitamin D, and appropriate weight-bearing exer
--- NOTE | ~2022-08-22 | US_ITS ---
EXAMINATION: US arterial ankle brachial ind DATE: 08/22/2022 09:18 INDICATION: Peripheral arterial disease. TECHNIQUE: Segmental pressures and plethysmographic and Doppler waveforms of the brachial and lower e xtremity arteries were obtained. COMPARISON: None. FINDINGS: Right and left brachial artery pressures of 150 mm Hg and 156 mm Hg, respectively, are concordant (no rmal difference <= 30 mmHg). The right ankle-brachial index (RADHA) is 1.04 (normal >= 0.9-1.0). The right great toe-brachial index (TBI) is 0.96 (normal >= 0.65). Arterial Doppler waveforms are biphasic at the ankle. The left RADHA is 1.06. The left TBI is 0.64. Arterial Doppler waveforms are biphasic at the ankle. IMPRESSION: 1. Mildly decreased left TBI and normal left RADHA, consistent with left-sided arterial occlusive disea se. Note that RADHA may be overestimated if arteries are calcified. 2. No significant right-sided arterial occlusive disease. Reviewed, dictated and finalized at location A. IMPRESSION: 1. Mildly decreased left TBI and normal left RADHA, consistent with left-sided ar terial occlusive disease. Note that RADHA may be overestimated if arteries are ca lcified. 2. No significant right-sided arterial occlusive disease.
== END 2022-08-22 08:34 | disposition home or self-care (01) ==
LOC: CHSIMG 08:34
PROVIDERS: PCP Internal Medicine; Visit Provider Internal Medicine
DX: I73.9 Peripheral vascular disease, unspecified (principal); M81.0 Age-related osteoporosis without current pathological fracture; M85.89 Other specified disorders of bone density and structure, multiple sites
CPT/HCPCS: 77080; 93922

== ENCOUNTER 2022-09-10 12:59 | Outpatient (CLI) | payer MEDICARE, SELFPAY ==
[2022-09-10] MEDS: ZOLEDRONIC ACID 5 MG/100 ML 100 ML 400 MG IVPB (13:20)
[2022-09-10 13:25] VITALS: BP 145/73; PULSE 64; RESP 16; TEMP 36.4; O2SAT 98; BMI 25.1
--- NOTE | 2022-09-10 13:45 | PC.NURSE ---
Patient here for IV Reclast. Education given. All concerns answered. IV Reclast administered. SEE MAR. Tolerated well. Safe exit of hospital per ambulatory/self.
== END 2022-09-10 13:00 | disposition home or self-care (01) ==
LOC: CHSOUTPT 13:03 → CHSTREATRM 13:11
PROVIDERS: PCP Internal Medicine; Visit Provider Internal Medicine
DX: M81.0 Age-related osteoporosis without current pathological fracture (principal)
CPT/HCPCS: 96374; J3489

== ENCOUNTER 2022-10-03 08:33 | Day surgery (SDC) | payer MEDICARE, SELFPAY ==
[2022-09-25 11:16] VITALS: BMI 24.0
[2022-09-25 12:13] VITALS: BMI 25.4
--- NOTE | 2022-10-02 08:19 | WPDANESEPPF ---
Anes - Initial Pre Proc Eval Procedure: Operation Date: 10/03/22 10:30 Proposed Procedures p Diagnostic Colonoscopy - Johnie Koo DO Date/Time: 10/02/22 08:19 Surgeon: Johnie Koo DO Pre Op Diagnosis: Positive Cologuard Patient Data Age: 71 Gender: F Height: 1.6 m Weight: 65 kg Allergies Allergy/AdvReac Type Severity Reaction Status Date / Time niacin AdvReac Swelling Verified 10/03/22 09:06 of Lip/Tongue/Throat Home Medications Medication Instructions Recorded Confirmed Type albuterol 90 mcg/actuation aerosol 90 mcg inhalation QID PRN 09/10/22 10/03/22 History inhaler shorteness of breath amlodipine 10 mg tablet 10 mg PO DAILY 09/10/22 10/03/22 History atorvastatin 10 mg tablet 10 mg PO DAILY 09/10/22 10/03/22 History citalopram 20 mg tablet 20 mg PO DAILY 09/10/22 10/03/22 History clonidine HCl 0.1 mg tablet 0.1 mg PO DAILY 09/10/22 10/03/22 History fluticasone furoate 200 1 inh inhalation DAILY 09/10/22 10/03/22 History mcg-vilanterol 25 mcg/dose inhalation powder levothyroxine 112 mcg tablet 112 mcg PO DAILY 09/10/22 10/03/22 History omeprazole 20 mg capsule,delayed 20 mg PO DAILY 09/10/22 10/03/22 History release cholecalciferol (vitamin D3) 50 50 mcg PO DAILY 09/25/22 10/03/22 History mcg (2,000 unit) capsule (Vitamin D3) Patient hx anesthesia problems: none Family hx anesthesia problems: none Results Review: All pre-operative results and documents have been reviewed as part of the pre-operative evaluation. [facility] Past Medical History Medical History (Updated 10/03/22 @ 09:21 by Johnie Koo DO) Asthma HTN (hypertension) Hyperlipidemia Osteoarthritis Renal cell cancer s/p nephrectomy Social History Social History Smoking status: Former smoker Tobacco type: cigarettes Additional smoking assessment comments: 1.5 packs per day history Alcohol intake: current Drinks per week: 4 Substance use: never Substance use type: does not use Living arrangements: with family Spiritual care concerns: No Anes - Eval Final PreProcedure Day of Procedure 10/02/22 08:19 Patient weight: normal Heart: regular rate and rhythm Lungs: clear to auscultation and normal air movement Airway: Mallampati scale class II Neurological: alert and oriented Last oral intake: >/= 8 hours ASA classification: III Emergent: no Anesthetic plan: proceed Anesthesia type and monitoring: general GIVS Results Review: All pre-operative results and documents have been reviewed as part of the pre-operative evaluation. Informed Consent: The patient's anesthetic plan and its attendant risks and benefits were discussed with the patient/family/POA. Questions were solicited and answers provided to the satisfaction of the patient/family/POA.
[2022-10-03 09:15] VITALS: BP 154/80; PULSE 60; RESP 18; TEMP 36.8; O2SAT 96; BMI 25.9
--- NOTE | 2022-10-03 09:20 | PM.IMHP ---
H&P: HPI History of Present Illness Date/Time: 10/03/22 09:20 Chief Complaint: positive Cologuard Narrative: this is a 71-year-old woman who presents for colonoscopy. She had a positive Cologuard recently. She had 1 prior Cologuard test that was negative. She has never had a colonoscopy before. She denies any hematochezia or melena. She denies any family history of colon cancer. Review of Systems Review of Systems: All systems reviewed & are unremarkable except as noted in HPI and below Constitutional: Constitutional: Denies chills, Denies fever(s), Denies headache(s) and Denies weight loss Eyes: Eyes: Denies change in vision ENT: Denies dizziness, Denies headache(s), Denies neck mass and Denies throat swelling Cardiovascular: Cardiovascular: Denies chest pain, Denies lightheadedness and Denies dyspnea Respiratory: Respiratory: Denies cough, Denies dyspnea and Denies wheezing Gastrointestinal: Gastrointestinal: Denies abdominal pain, Denies change in bowel habits, Denies nausea and Denies vomiting Genitourinary: Genitourinary: Denies hematuria and Denies dysuria Musculoskeletal: Musculoskeletal: Reports as per HPI Integumentary/Breasts: Skin/Breast: Reports as per HPI Neurologic: Denies dizziness and Denies headache(s) Allergic/Immunologic: Allergic/Immunologic: Denies throat swelling and Denies wheezing ON LICENSE OF [facility] Past Medical History Medical History (Updated 10/03/22 @ 09:21 by Johnie Koo DO) Asthma HTN (hypertension) Hyperlipidemia Osteoarthritis Renal cell cancer s/p nephrectomy Social History Social History Smoking status: Former smoker Tobacco type: cigarettes Additional smoking assessment comments: 1.5 packs per day history Alcohol intake: current Drinks per week: 4 Substance use: never Substance use type: does not use Living arrangements: with family Spiritual care concerns: No Meds Home Medications and Allergies Home Medications Medication Instructions Recorded Confirmed Type albuterol 90 mcg/actuation aerosol 90 mcg inhalation QID PRN 09/10/22 10/03/22 History inhaler shorteness of breath amlodipine 10 mg tablet 10 mg PO DAILY 09/10/22 10/03/22 History atorvastatin 10 mg tablet 10 mg PO DAILY 09/10/22 10/03/22 History citalopram 20 mg tablet 20 mg PO DAILY 09/10/22 10/03/22 History clonidine HCl 0.1 mg tablet 0.1 mg PO DAILY 09/10/22 10/03/22 History fluticasone furoate 200 1 inh inhalation DAILY 09/10/22 10/03/22 History mcg-vilanterol 25 mcg/dose inhalation powder levothyroxine 112 mcg tablet 112 mcg PO DAILY 09/10/22 10/03/22 History omeprazole 20 mg capsule,delayed 20 mg PO DAILY 09/10/22 10/03/22 History release cholecalciferol (vitamin D3) 50 50 mcg PO DAILY 09/25/22 10/03/22 History mcg (2,000 unit) capsule (Vitamin D3) Allergies Allergy/AdvReac Type Severity Reaction Status Date / Time niacin AdvReac Swelling Verified 10/03/22 09:06 of Lip/Tongue/Throat Vital Signs Vital Signs - 24 hr 10/03/22 09:15 Temperature 36.8 C Pulse Rate 60 Respiratory Rate 18 Blood Pressure 154/80 H Pulse Oximetry 96 Oxygen Delivery Room Air Exam Const: General: no acute distress and alert Orientation/consciousness: patient oriented x3 HENMT: Head: normocephalic and atraumatic Ears: hearing grossly normal bilaterally Face/Nose/Sinus: Normal nares present Mouth: Yes Normal oral and palatal mucosa present Eyes: Periorbital: periorbital findings normal Sclera: sclerae normal EOM: EOMs intact bilaterally Neck: Neck: normal visual inspection, no lymphadenopathy and trachea midline Chest: Chest palpation & inspection: normal inspection of the chest Resp: Effort & Inspection: normal respiratory effort Auscultation: clear to auscultation bilaterally Cardio: Jugular venous distension: no JVD Rate: regular rate Rhythm: regular rhythm Heart sounds: S1 normal heart sound present and S2 normal heart sound
[2022-10-03] MEDS: LACTATED RINGERS 1,000 ML 150 ML IV CONT (09:32)
[2022-10-03 11:56] VITALS: BP 134/76; PULSE 65; RESP 16; O2SAT 96
[2022-10-03 12:06] VITALS: BP 135/80; PULSE 65; RESP 18; O2SAT 96
[2022-10-03 12:16] VITALS: BP 142/86; PULSE 68; RESP 20; O2SAT 96
--- NOTE | 2022-10-03 12:54 | WPDANESPN ---
Anes - Prog Note Post-Op Date/Time: 10/03/22 12:54 Cardiovascular status: normal Respiratory status: normal Airway patency: baseline Mental status: baseline Post-Op hydration status: normal Vital Signs: Last Vital Signs Temp 36.8 C 10/03/22 09:15 Pulse 68 10/03/22 12:16 Resp 20 10/03/22 12:16 BP 142/86 H 10/03/22 12:16 Pulse Ox 96 10/03/22 12:16 O2 Del Method Room Air 10/03/22 12:16 Pain Score (VAS): 0 I/O: Intake & Output 10/02/22 10/03/22 10/03/22 23:59 07:59 15:59 Intake Total 950 Balance 950 Post-procedural complaints: none Patient Feedback: Patient satisfied with anesthetic care.
== END 2022-10-03 12:41 | disposition home or self-care (01) ==
PROVIDERS: PCP Internal Medicine; Visit Provider Surgery
PROC: 0DJD8ZZ Inspection of Lower Intestinal Tract, Via Natural or Artificial Opening Endoscopic (ICD-10-PCS; CPT 45378; principal; 2022-10-03 10:30)
DX: R19.5 Other fecal abnormalities (principal)
CPT/HCPCS: 45385

== ENCOUNTER 2022-10-03 09:00 | Outpatient (NON) | payer MEDICARE, SELFPAY | END 2022-10-03 09:01 | disposition home or self-care (01) | PROVIDERS: PCP Internal Medicine; Visit Provider Surgery | DX: R19.5 Other fecal abnormalities (principal); D12.2 Benign neoplasm of ascending colon; D12.5 Benign neoplasm of sigmoid colon; D12.0 Benign neoplasm of cecum; D12.3 Benign neoplasm of transverse colon | CPT/HCPCS: 88305 ==

== ENCOUNTER 2023-08-08 12:35 | Outpatient (CLI) | payer MEDICARE, SELFPAY ==
--- NOTE | ~2023-08-08 | MM_ITS ---
EXAMINATION: MM screening charlie BI w sonali HISTORY: Screening TECHNIQUE: Craniocaudal and mediolateral oblique 3-D tomosynthesis images were obtained and synthetic 2-D images were generated. CAD analysis was submitted and interpreted. COMPARISON: Comparison to multiple prior studies sequentially, with oldest reviewed study dated 08/2016. BREAST PARENCHYMAL COMPOSITION: Not dense: There are scattered areas of fibroglandular density. FINDINGS: There is no evidence of suspicious mass, calcification, or architectural distortion to sugg est malignancy in either breast. There has been no suspicious interval change. IMPRESSION: 1. No mammographic evidence of malignancy. 2. Recommend routine screening mammography in one year. BI-RADS Category 1: Negative Reviewed, dictated and finalized at location A.
--- NOTE | ~2023-08-08 | CT_ITS ---
EXAMINATION: CT lung screening DATE: 08/08/2023 13:07 INDICATION: Smoker screening. History of right partial lobectomy TECHNIQUE: Computed tomography (CT) of the chest was performed without intravenous contrast. Automate d exposure control and iterative reconstruction technique were employed. Exam dose: 81.76 mGy-cm tot al exam DLP. COMPARISON: August 01, 2022 2 view chest June 23, 2018 CT chest FINDINGS: Status post right upper lobe pulmonary wedge resection. Scattered areas of discoid atelectasis or more likely scarring in the left lower lobe. Mild to moderate emphysematous changes of the lungs. No pulmonary masses. No pulmonary infiltrate or consolidation. No hilar or mediastinal mass lesion or lymphadenopathy. Normal heart size. Thoracic aortic, great vessels and coronary artery calcifications. No pericardial or pleural effusion. Small sliding hiatal hernia. Status post cholecystectomy. Included skeletal structures are unremarkable. IMPRESSION: Lung-RADS 1: Negative Recommendation: 12 month follow-up lung screening CT scan Reviewed, dictated and finalized at Location [facility]. Reviewed, dictated and finalized at location B.
== END 2023-08-08 12:36 | disposition home or self-care (01) ==
PROVIDERS: PCP Internal Medicine; Visit Provider Internal Medicine
DX: Z12.31 Encounter for screening mammogram for malignant neoplasm of breast (principal); Z12.2 Encounter for screening for malignant neoplasm of respiratory organs; Z87.891 Personal history of nicotine dependence
CPT/HCPCS: 71271; 77063; 77067

== ENCOUNTER 2023-11-11 14:02 | Outpatient (CLI) | payer MEDICARE, SELFPAY ==
--- NOTE | ~2023-11-11 | XR_ITS ---
EXAMINATION: XR chest 2V 11/11/2023 14:28 INDICATION: Productive cough for 2 weeks PROCEDURE: 2 view chest COMPARISON: Comparison to multiple prior studies sequentially, with oldest reviewed study dated 06/2020. FINDINGS: The lungs are clear. There are changes of partial right upper lobectomy. The cardiomediasti nal silhouette is within normal limits. There are no pleural effusions. There is no pneumothorax hooks spected. IMPRESSION: 1: NO ACUTE CARDIOPULMONARY DISEASE. Reviewed, dictated and finalized at location B.
[2023-11-11 14:16] LABS: Basophils Absolute Auto 0.07 K/mm3 (0.00-0.10); Basophils Percent Auto 0.8 % (0.0-1.0); Eosinophils Absolute Auto 0.27 K/mm3 (0.02-0.50); Eosinophils Percent Auto 3.1 % (1.0-6.0); Hematocrit 37.6 % (35.0-42.0); Hemoglobin 12.4 g/dL (11.7-13.8); Immature Granulocyte Absolute 0.03 K/mm3 (0.00-0.00); Immature Granulocyte Percent A 0.3 % (0.0-0.0); Lymphocytes Absolute Auto 2.14 K/mm3 (1.10-4.50); Lymphocytes Percent Auto 24.7 % (18.0-42.0); Mean Platelet Volume 10.5 fl (9.2-11.8); Monocytes Absolute Auto 0.56 K/mm3 (0.10-0.90); Monocytes Percent Auto 6.5 % (2.0-11.0); Neutrophils Absolute Auto 5.61 K/mm3 (1.70-7.20); Neutrophils Percent Auto 64.6 % (50.0-70.0); Platelet Count Result 280 K/mm3 (150-420); Red Blood Count 4.13 M/mm3 (4.20-5.40); Red Cell Distribution Width 12.6 % (11.6-14.4); White Blood Count 8.7 K/mm3 (4.8-10.8)
[2023-11-11 15:00] LABS: Anion Gap 5 mmol/L (4-12); Blood Urea Nitrogen 17 mg/dL (7-18); Calcium 8.9 mg/dL (8.5-10.1); Carbon Dioxide 29 mmol/L (21-32); Chloride 101 mmol/L (98-108); Estimated Glomerular Filt Rate 34; Glucose 105 mg/dL (70-99); Osmolality Calculated 281 mOsm/kg (285-295); Potassium 4.4 mmol/L (3.5-5.1); Sodium 135 mmol/L (136-145)
== END 2023-11-11 14:03 | disposition home or self-care (01) ==
LOC: CHSLAB 14:04
PROVIDERS: PCP Nurse Practitioner Family; Visit Provider Nurse Practitioner Family
DX: R05.9 Cough, unspecified (principal)
CPT/HCPCS: 36415; 71046; 80048; 85025

== ENCOUNTER 2024-03-10 10:01 | Outpatient (CLI) | payer MEDICARE, SELFPAY ==
--- OUTSIDE RECORDS SUMMARY | 2024-03-17 19:28 | XMS_ITS | Encounter Summary ---
Author Organization [facility] Address [address] [place] [address]. [place], [place] [address] [place] [address] Care Team Providers Care Head Charrer Name Role Phone Laine Echeverria MD Primary Care Provider [phone] Encounter Details Date Type Department Care Team (Latest Contact Info) Description 06/25/2021 Travel Social History Tobacco Use Types Packs/Day Years Used Date Smoking Tobacco: Former Cigarettes Q uit: 2008 Comments Unknown Sex and Gender Information Value Date Recorded Sex Assigned at Not on file Legal Sex Female 9:01 PM CDT Gender Identity Female 06/26/2021 7:55 AM CDT Sexual Orientation Not on file COVID-19 Exposure Response Date Recorded In the last 10 days, have yo u been in contact with someone who was confirmed or suspected to have Coronavirus/COVID-19? No / Unsure 06/25/2021 1:37 PM CDT documented as of this encounter Plan of Treatment Not on file documented as of this encounter Visit Diagnoses Not on filedocumented in this encounter Care Teams Head Charrer Relationship Specialty Start Date End Date Laine Echeverria MD [address] [place] [address] PCP - General INTERNAL MEDICINE 11/11/18 documented as of this encounter
--- OUTSIDE RECORDS SUMMARY | 2024-03-17 19:28 | XMS_ITS | Encounter Summary ---
Author Organization [facility] Address [facility] [place] [address] [place] [address] Care Team Providers Care Risk Mgr Name Role Phone Laine Echeverria MD Primary Care Provider [phone] Reason for Visit * Reason Onset Date Comments Results 07/20/2021 Encounter Details Date Type Department Care Team ([facility] st Contact Info) Description 07/20/2021 Telephone [facility] [address] [place] [address] Sulma Meadows APRN, PULLING UNIT OPERATOR-C [address] [facility] [address] [place] [address] Results Social History Tobacco Use Types Packs/Day Years Used Date Smoking Tobacco: Former Cigarettes Q uit: 2009 Smokeless Tobacco: Never Comments Unknown Sex and Gender Information Value [...] PM CDT documented as of this encounter Progress Notes * Sulma Meadows APRN, PULLING UNIT OPERATOR-C - 07/20/2021 5:14 PM CDT Spoke with Stacy. Her stress test results did not identify evidence of ischemia. Her LVEF was 70%. I explained that there is an echocardiogram results in her chart from 02/18/2013 which describes a bicuspid aortic valve with moderate to severe stenosis, which was not consistent with her previous echocardiogram in 2004. There was also no mention of this echocardiogram when she saw Dr. Krishna in 2016. There is no echocardiogram in [facility] from this date. The echocardiogram result is a transfer into [facility] from the old [facility] [employer] system without any identifying name. She does not recallhaving an echocardiogram at that time or being told about aortic valve disease. Therefore, this is most likely not her result. She had a slight systolic ejection murmur upon exam. She is asymptomatic at this point. I offered to order an echocardiogram, or have Dr. Echeverria continue to evaluate her clinically, and she chose the latter. If her murmur worsens, an echocardiogram could be considered at that time. She can follow-up with our office as needed. She v/u. documented in this encounter Plan of Treatment Not on file documented as of this encounter Visit Diagnoses Not on filedocumented in this encounter Care Teams Risk Mgr Relationship Specialty Start Date End Date Laine Echeverria MD [address] [place] [address] PCP - General INTERNAL MEDICINE 11/11/18 documented as of this encounter
--- OUTSIDE RECORDS SUMMARY | 2024-03-17 19:28 | XMS_ITS | Encounter Summary ---
Author Organization [facility] Address [address] [place] [address]. [place] [address] [place] [address] Care Team Providers Care Ct Technician Name Role Phone Laine Echeverria MD Primary Care Provider [phone] Reason for Visit * Reason Onset Date Comments Results 07/19/2021 Encounter Details Date Type Department Care Team ([facility] st Contact Info) Description 07/19/2021 Telephone [facility] [address] [place] [address] Sulma Meadows APRN, CUSTOMS DIRECTOR-C [address] [facility] [address] [place] [address] Results Social History Tobacco Use [...] as of this encounter Progress Notes * Apryl Alcazar LPN - 07/19/2021 12:38 PM CDT Pt called asking for stress results. Called [facility], results to be faxed. documented in this encounter Plan of Treatment Not on file documented as of this encounter Visit Diagnoses Not on filedocumented in this encounter Care Teams Ct Technician Relationship Specialty Start Date End Date Laine Echeverria MD [address] [place] [address] PCP - General INTERNAL MEDICINE 11/11/18 documented as of this encounter
--- OUTSIDE RECORDS SUMMARY | 2024-03-17 19:28 | XMS_ITS | Encounter Summary ---
Author Organization [facility] Address [address] [place] [address]. [place] [address] [place] [address] Care Team Providers Care Chain Tender Name Role Phone Laine Echeverria MD Primary Care Provider [phone] Reason for Visit * Reason Onset Date Comments Schedule Test 06/27/2021 Encounter Details Date Type Department Care Team ([facility] st Contact Info) Description 06/27/2021 Telephone [facility] [address] [place] [address] Sulma Meadows, GRACY, MOLD CHECKER-C [address] [facility][1] [address] [place] [address] Schedule Test Social History Tobacco Use Types Packs/Day Years [...] as of this encounter Progress Notes * Rachel Kim LPN - 06/27/2021 10:22 AM CDT Pt called to state that she has had an echo in the past, per Ashley at the office she has only had an ekg, they will fax those results * Carlyle Jacob LPN - 06/27/2021 8:08 AM CDT Spoke to Stacy, she is aware that I have her stress test scheduled for 07/17/2021 @ 7:45am at [facility], she should have nothing to eat or drink for 4 hours prior and no caffeine for 12 hours prior. Stacy v/u, she has no further questions. documented in this encounter Plan of Treatment Not on file documented as of this encounter Visit Diagnoses Not on filedocumented in this encounter Care Teams Chain Tender Relationship Specialty Start Date End Date Laine Echeverria MD [address] [place] [address] PCP - General INTERNAL MEDICINE 11/11/18 documented as of this encounter
--- OUTSIDE RECORDS SUMMARY | 2024-03-17 19:28 | XMS_ITS | Clinical Summary ---
Author Organization [facility] Address [facility] [facility] [place] [address] [place] [address] Care Team Providers Care Sfdc Architect Name Role Phone Laine Echeverria MD Primary Care Provider [phone] Allergies Active Allergy Reactions Criticality Noted Date Comments Amoxicillin-Pot Clavulanate Nausea and Vomiting 06/14/2021 Codeine Nausea and Vomiting 08/26/2015 Niacin Swelling 06/26/2021 Facial swelling Medications aspirin EC (ASPIRIN EC) 81 MG tablet Take 1 tablet by mouth daily. 04/18/2015 Active albuterol sulfate HFA 108 (90 Base) MCG/ACT inhaler Inhale 2 puffs into the lungs every 6 (six) hours as needed. 06/12/2021 Active citalopram 20 MG tablet Take 20 mg by mouth daily. 04/13/2021 Active amLODIPine (NORVASC) 10 MG tablet Take 1 tablet by mouth daily. 04/15/2015 Active levothyroxine 112 MCG tablet TAKE 1 TABLET BY MOUTH DAILY ON SATURDAY- AND 1/2 TABLET ON Saturday05/12/2021 Active BREO ELLIPTA 200-25 MCG/INH inhaler Inhale 1 puff into the lungs daily. 06/12/2021 Active omeprazole 20 MG capsule Take 20 mg by mouth daily. 06/01/2021 Active cloNIDine 0.1 MG tablet Take 0.1 mg by mouth 2 (two) times daily. 05/29/2021 Active atorvastatin 10 MG tablet Take 10 mg by mouth daily. 05/29/2021 Active fluticasone propionate 50 MCG/ACT nasal spray 2 sprays by Nasal route daily. Active Multiple Vitamin (MULTIVITAMIN ADULT OR) Take 1 tablet by mouth daily. Active Active Problems Problem Noted Date Diagnosed Date Hyperlipidemia 06/26/2021 Hypertension 03/18/1997 Family History Medical History Relation Comments PVD Father Stroke Paternal Grandmother Breast Cancer Sister Relation Status Comments Father Mother Paternal Grandmother Sister Social History Tobacco Use Types Packs/Day Years Used Date Smoking Tobacco: Former Cigarettes Q uit: 2008 Smokeless Tobacco: Never Comments Unknown Sex and Gender Information Value Date Recorded Sex Assigned at Not on file Legal Sex Female 9:01 PM CDT Gender Identity Female 06/26/2021 7:55 AM CDT Sexual Orientation Not on file Last Filed Vital Signs Vital Sign Reading Time Taken Comments Blood Pressure 138/70 06/26/2021 8:35 AM CDT Pulse 47 06/26/2021 8:35 AM CDT Temperature - - Respiratory Rate 16 06/26/2021 8:35 AM CDT Oxygen Saturation - - Inhaled Oxygen Concentration - - Weight 69.9 kg (154 lb 3.2 oz) 06/26/2021 8:35 A M CDT Height 162.6 cm (5' 4 ) 06/26/2021 8:35 AM CDT Body Mass Index 26.47 06/26/2021 8:35 AM CDT Plan of Treatment Health Maintenance Due Date Last Done Comments Colorectal Cancer Screening Colonoscopy (10 Years) 1949 Hepatitis C 10/21/1967 Mammogram Screening 1989 Zoster Vaccines (1 of 2) 10/21/1999 Annual Medicare Wellness Visit 2014 Dexa Scan (General) 2014 COVID-19 Vaccine ( season) 2023 02/06/2021, 07/20/2020, 06/01/2020, Additional history exists Influenza Adult (#1) 2023 12/26/2020, 11/19/2019, 02/18/2019, Additional history exists RSV Immunization or 60+ Years (1 - 1-dose 75+ series) 2024 DTaP, Tdap and Td Vaccines (2 - Td or Tdap) 12/26/2030 12/26/2020 Pneumococcal Vaccine: 65+ Years Completed 02/18/2019, 12/09/2014 Meningococcal Vaccine Aged Out No august franky eligible based on patient's age to complete this topic RSV Immunizations Under 20 Months Aged Out No longer eligible based on patient's age to complete this topic Insurance [employer] Care Teams Sfdc Architect Relationship Specialty Start Date End Date Laine Echeverria MD [address] [place] [address] PCP - General INTERNAL MEDICINE 11/11/18
--- OUTSIDE RECORDS SUMMARY | 2024-03-17 19:28 | XMS_ITS | Encounter Summary ---
Author Organization [facility] Address [address] [place] [address]. [place] [address] [place] [address] Care Team Providers Care Forensic Sergeant Name Role Phone Laine Echeverria MD Primary Care Provider [phone] Reason for Visit * Reason Onset Date Comments Problem 07/12/2021 Encounter Details Date Type Department Care Team ([facility] st Contact Info) Description 07/12/2021 Telephone [facility] [address] [place] [address] Sulma Meadows, GRACY, TECHNICAL EDITOR-C [address] [facility] [address] [place] [address] Problem Social History Tobacco Use Types Packs/Day Years [...] as of this encounter Progress Notes * Ana Yousif RN - 07/13/2021 5:35 PM CDT Ariana called from Medicare Appeals ([phone]) to make you aware this appeal is being processed as an expeditated case and you will have an answer on or before 07/15/2021 * Missy Chopra LPN - 07/13/2021 12:23 PM CDT Auth was obtained . See referral * Rachel Kim LPN - 07/12/2021 9:01 AM CDT Appeal started [id number] Office notes faxed to [phone] documented in this encounter Plan of Treatment Not on file documented as of this encounter Visit Diagnoses Not on filedocumented in this encounter Care Teams Forensic Sergeant Relationship Specialty Start Date End Date Laine Echeverria MD [address] [place] [address] PCP - General INTERNAL MEDICINE 11/11/18 documented as of this encounter
--- OUTSIDE RECORDS SUMMARY | 2024-03-17 19:28 | XMS_ITS | Encounter Summary ---
Author Organization [facility] Address [facility] [place] [address] [place] [address] Care Team Providers Care Timber Grader Name Role Phone Laine Echeverria MD Primary Care Provider [phone] Encounter Details Date Type Department Care Team ([facility] st Contact Info) Description 07/20/2021 Orders Only [facility] [address] [place] [address] Sulma Meadows, LICENSED PHYSICAL THERAPY ASSISTANT, SENSOR OPERATOR-C [address] [facility] [address] [place] [address] Social History Tobacco Use Types Packs/Day Years [...] on file documented as of this encounter Procedures Procedure Name Priority Date/Time Associated Diagnosis Comments NM EXER NUC STRESS TEST 1DAY Routine 07/17/2021 Chest pain, unspecified type Primary hypertension Abnormal EKG documented in this encounter Results * NM EXER NUC STRESS TEST 1DAY (07/17/2021) Anatomical Region Laterality Modality Cardiac Nuclear Medicine us Sulma Meadows APRN, SENSOR OPERATOR-C NUC MED Final Result documented in this encounter Visit Diagnoses Diagnosis Chest pain, unspecified type Primary hypertension Unspecified essential hypertension Abnormal EKG Nonspecific abnormal electrocardiogram (ECG) (EKG) documented in this encounter Care Teams Timber Grader Relationship Specialty Start Date End Date Laine Echeverria MD [address] [place] [address] PCP - General INTERNAL MEDICINE 11/11/18 documented as of this encounter
--- OUTSIDE RECORDS SUMMARY | 2024-03-17 19:28 | XMS_ITS | Encounter Summary ---
Author Organization [facility] - [facility] Address [facility] [place] [address] [place] [address] Care Team Providers Care Veneer Measurer Name Role Phone Laine Echeverria MD Primary Care Provider [phone] Encounter Details Date Type Department Care Team ([facility] Contact Info) Description 06/21/2021 Orders Only [facility] [address] [place] [id number] Bairon Galvan MD Social History Tobacco Use Types Packs/Day Years Used Date Smoking Tobacco: Former Cigarettes Q uit: 2009 Comments Unknown Sex and Gender Information Value Date Recorded Sex Assigned at Not on file Legal Sex Female 9:01 PM CDT Gender Identity Female 06/26/2021 7:55 AM CDT Sexual Orientation Not on file documented as of this encounter Plan of Treatment Not on file documented as of this encounter Results * ELECTROCARDIOGRAM (06/26/2021 8:33 AM CDT) 06/26/2021 8:33 AM CDT Narrative [facility] - 06/27/2021 8:29 AM CDT ? [facility], [facility] ?[address], [place] ??[address] ? Test Date: ?2021-06-26 Pat Name: ? MELL JULIA ? Department: ?? 105 ? Room: ? Gender: ? Female ? Varnish Mixer: ?? : ?1950 ? Requested By: BAIRON GALVAN Order Number: [id number] ?Reading MD: ?? Bairon Galvan ? Measurements Intervals ?[place] ? Rate: ? 47 ? P: ?44 IA: ? 181 ?QRS: ?31 QRSD: ? 86 ? T: ?53 QT: ? 469 ? QTc: ?418 ? Interpretive Statements SINUS BRADYCARDIA Procedure Note Bairon Galvan MD - 06/27/2021 [facility], [facility] [address] [place] [address] Test Date: 2021-06-26 Pat Name: MELL DUMONT Department: 105 Room: Gender: Female Varnish Mixer: : 1950 Requested By: BAIRON GALVAN Order Number: [id number] Reading MD: Bairon Galvan Measurements Intervals [place] Rate: 47 P: 44 IA: 181 QRS: 31 QRSD: 86 T: 53 QT: 469 QTc: 418 Interpretive Statements SINUS BRADYCARDIA us Bairon Galvan MD PROCEDURES-ORDERABLE NO NELLIE RGE Final Result [facility] documented in this encounter Visit Diagnoses Diagnosis Persistent atrial fibrillation (CMS/HCC [facility])- Primary Atrial fibrillation Abnormal EKG- Primary Nonspecific abnormal electrocardiogram (ECG) (EKG) Chest pain, unspecified type Bradycardia Other specified cardiac dysrhythmias Vertebral artery occlusion, left Primary hypertension Unspecified essential hypertension Hyperlipidemia, unspecified hyperlipidemia type documented in this encounter Care Teams Veneer Measurer Relationship Specialty Start Date End Date Laine Echeverria MD [address] [place] [address] PCP - General INTERNAL MEDICINE 11/11/18 documented as of this encounter
--- OUTSIDE RECORDS SUMMARY | 2024-03-17 19:28 | XMS_ITS | Encounter Summary ---
Author Organization [facility] Address [facility] [facility] [place] [address] [place] [address] Care Team Providers Care Manufacturing Process Engineer Name Role Phone Laine Echeverria MD Primary Care Provider [phone] Reason for Visit * Reason Onset Date Comments Appointment Request 06/13/2021 Encounter Details Date Type Department Care Team (Late st Contact Info) Description 06/13/2021 Telephone [facility] ld [address] [place] [address] Shukri Galvan MD Appointment Request Social History Tobacco Use Types Packs/Day Years Used Date Smoking Tobacco: Smoker, Current Status Unknown Comments Unknown Sex and Gender Information Value Date Recorded Sex Assigned at Not on file Legal Sex Female 9:01 PM CDT Gender Identity Female 06/26/2021 7:55 AM CDT Sexual Orientation Not on file documented as of this encounter Progress Notes * Eli Ho CMA - 06/13/2021 3:45 PM CDT Returned call to Ashley. Updated address & phone number. Pt has now [employer] Medicare PPO. Scheduled pt to see Sulma at 8:30 AM on 06/26/21. * Eli Ho CMA - 06/13/2021 3:39 PM CDT [facility] VOICE MAIL VM DATE/TIME: 06/13/21 at 2:[address] Echeverria called and left a msg, stating that pt needs to be scheduled to see either or Sulma Meadows NP, for atypical chest pain and that pt has multiple risk factors. She stated that she will fax information to the office. documented in this encounter Plan of Treatment Not on file documented as of this encounter Visit Diagnoses Not on filedocumented in this encounter Care Teams Manufacturing Process Engineer Relationship Specialty Start Date End Date Laine Echeverria MD [address] [place] [id number] PCP - General INTERNAL MEDICINE 11/11/18 documented as of this encounter
--- OUTSIDE RECORDS SUMMARY | 2024-03-17 19:28 | XMS_ITS | Encounter Summary ---
Author Organization [facility] Address [address] [facility] [place] [address] [place] [address] Care Team Providers Care Memory Care Program Director Name Role Phone Laine Echeverria MD Primary Care Provider [phone] Encounter Details Date Type Department Care Team ([facility] st Contact Info) Description 06/14/2021 Abstract [facility] [address] [place] [address] Sulma Meadows, METAL FABRICATOR APPRENTICE, BUSINESS CONTINUITY COORDINATOR-C [address] [facility] [address] [place] [phone] Social History Tobacco Use Types Packs/Day Years [...] Procedure Name Priority Date/Time Associated Diagnosis Comments CMP (ABSTRACTED LAB) Routine 06/12/2021 CBC (OUTSIDE LAB) Routine 06/12/2021 CMP (ABSTRACTED LAB) Routine 02/24/2021 TSH (OUTSIDE LAB) Routine 02/24/2021 CBC (OUTSIDE LAB) Routine 02/24/2021 HEMOGLOBIN, GLYCOSYLATED Routine 02/24/2021 LIPID PANEL Routine 02/24/2021 THYROXINE, FREE (FT4) Routine 02/24/2021 documented in this encounter Results * CBC (OUTSIDE LAB) (06/12/2021) WBC 7.4 3.8 - 10.8 HGB 12.9 11.7 - 15.5 HCT 38.5 35.0 - 45.0 PLT 301 140 - 400 RBC 4.30 3.80 - 5.10 06/12/2021 us Doc [facility] Abstract LAB-OUTSIDE/ABSTRACTED Final Result * (ABNORMAL) CMP (ABSTRACTED LAB) (06/12/2021) SODIUM S/P/B 138 135 - 146 POTASSIUM S/P/B 4.1 3.5 - 5.3 CHLORIDE S/P/B 101 98 - 110 CO2 28 20 - 32 BUN 17 7 - 25 CREATININE S/P/B 1.21(A) 0.6 - 0.93 CALCIUM S/P/B 9.5 8.6 - 10.4 GLUCOSE 96 65 - 99 mg/dL TOTAL PROTEIN S/P/B 7.6 6.1 - 8.1 ALBUMIN S/P/B 4.7 3.6 - 5.1 - 5.0 AST 28 10 - 35 ALT 16 6 - 29 ALKALINE PHOSPHATASE S/P/B 100 37 - 153 BILIRUBIN TOTAL S/P/B 0.5 0.2 - 1.2 06/12/2021 us Doc [facility] Abstract LAB-OUTSIDE/ABSTRACTED Final Result * CBC (OUTSIDE LAB) (02/24/2021) WBC 8.1 4.8 - 10.8 HGB 13.4 11.7 - 13.8 HCT 41.3 35.0 - 42.0 PLT 280 150 - 420 RBC 4.47 4.20 - 5.40 02/24/2021 us Doc [facility] Abstract LAB-OUTSIDE/ABSTRACTED Final Result * HEMOGLOBIN, GLYCOSYLATED (02/24/2021) Pathologist [facility] HGB A1C 5.9 <5.7 % 02/24/2021 us Doc [facility] Abstract LABORATORY Final Result * THYROXINE, FREE (FT4) (02/24/2021) [facility] FREE T4 1.05 0.76 - 1.46 02/24/2021 [facility] Abstract LABORATORY Final Result * TSH (OUTSIDE LAB) (02/24/2021) [facility] TSH 1.92 0.36 - 3.74 02/24/2021 [facility] Abstract LAB-OUTSIDE/ABSTRACTED Final Result * LIPID PANEL (02/24/2021) [facility] CHOLESTEROL 189 0 - 200 HDL 56 40 - 60 TRIGLYCERIDES 162 0 - 150 LDL (CALCULATED) 101 <130 02/24/2021 us [facility] Abstract LABORATORY Final Result * (ABNORMAL) CMP (ABSTRACTED LAB) (02/24/2021) [facility] SODIUM S/P/B 140 136 - 145 POTASSIUM S/P/B 4.5 3.5 - 5.1 CHLORIDE S/P/B 102 98 - 108 CO2 29 21 - 32 BUN 17 7 - 18 CREATININE S/P/B 1.34(A) 0.55 - 1.02 CALCIUM S/P/B 9.0 8.5 - 10.1 GLUCOSE 91 70 - 99 mg/dL TOTAL PROTEIN S/P/B 7.6 6.4 - 8.2 ALBUMIN S/P/B 3.7 3.5 - 5.0 AST 33 15 - 37 ALT 28 14 - 59 ALKALINE PHOSPHATASE S/P/B 125 46 - 116 BILIRUBIN TOTAL S/P/B 0.5 0.00 - 1.00 02/24/2021 us Doc [facility] Abstract LAB-OUTSIDE/ABSTRACTED Final Result documented in this encounter Visit Diagnoses Not on filedocumented in this encounter Care Teams Memory Care Program Director Relationship Specialty Start Date End Date Laine Echeverria MD [address] [place] [address] PCP - General INTERNAL MEDICINE 11/11/18 documented as of this encounter
--- OUTSIDE RECORDS SUMMARY | 2024-03-17 19:28 | XMS_ITS | Encounter Summary ---
Author Organization [facility] - [facility] Address [address] [place] [address]. [place] [address] [place] [address] Care Team Providers Care A And P Technician Name Role Phone Laine Echeverria MD Primary Care Provider [phone] Reason for Visit * Reason Comments ECG (SCAN) Encounter Details Date Type Department Care Team (Late st Contact Info) Description 06/12/2021 Scan [facility] [address] [place] [address] Scanned, Documents ECG (SCAN) Social History Tobacco Use Types Packs/Day Years [...] Procedure Name Priority Date/Time Associated Diagnosis Comments ECG GENERIC (SCAN ORDER) Routine 06/12/2021 documented in this encounter Results * ECG (06/12/2021) us Documents Scanned SCANNING Final Result [facility] documented in this encounter Visit Diagnoses Not on filedocumented in this encounter Care Teams A And P Technician Relationship Specialty Start Date End Date Laine Echeverria MD [address] [place] [address] PCP - General INTERNAL MEDICINE 11/11/18 documented as of this encounter
--- OUTSIDE RECORDS SUMMARY | 2024-03-17 19:28 | XMS_ITS | Encounter Summary ---
Author Organization [facility] Address [facility] [facility] [place] [address] [place] [address] Care Team Providers Care Snack Stewardess Name Role Phone Laine Echeverria MD Primary Care Provider [phone] Encounter Details Date Type Department Care Team (Latest Contact Info) Description 11/11/2018 1:49 PM CDT - 11/11/2018 11:59 PM CDT Hospital Encounter [facility] [address] [place] [address] Jose Benitez, DPM [address] [place] [address] Discharge Disposition: Home or Self Care (Routine Discharge) Social History Tobacco Use Types Packs/Day Years Used Date Smoking Tobacco: Smoker, Current Status Unknown Comments Unknown Sex and Gender Information Value Date Recorded Sex Assigned at Not on file Legal Sex Female 9:01 PM CDT Gender Identity Female 06/26/2021 7:55 AM CDT Sexual Orientation Not on file documented as of this encounter Medications at Time of Discharge amLODIPine (NORVASC) 10 MG tablet Take 1 tablet by mouth daily. 04/15/2015 aspirin EC (ASPIRIN EC) 81 MG tablet Take 1 tablet by mouth daily. 04/18/2015 ALPRAZolam (XANAX) 0.25 MG tablet Take 1 tablet by mouth every 6 (six) hours as needed. 04/15/2015 06/26/2021 documented as of this encounter Plan of Treatment Not on file documented as of this encounter Procedures Procedure Name Priority Date/Time Associated Diagnosis Comments XR FOOT LT 3V Routine 11/11/2018 2:10 PM CDT Left foot pain documented in this encounter Results * XR FOOT LT 3V (11/11/2018 2:10 PM CDT) Anatomical Region Laterality Modality Foot Radiographic Mary ging Impressions 11/12/2018 12:07 PM CDT IMPRESSION: 1. No acute findings. 2. Hallux valgus. 3. Multiple hammertoes. 4. Tiny Achilles calcaneal spur. Interpreted By: Noam Martin, 11/12/2018 12:05 PM Narrative 11/12/2018 12:07 PM CDT Examination: Left foot. Exam time: 1359 hours. Clinical history: Preop. Comparison: None. Technique: Three views. Findings: No fracture, dislocation or other acute bony abnormality is identified. ??There are degenerative changes in the first MTP joint with marked hallux valgus. There are hammertoe deformities of the second through fifth digits. There is a tiny Achilles calcaneal spur. No other significant bone or joint abnormality is noted. Os tibiale externum, accessory ossicle, is incidentally noted. The soft tissues are ? unremarkable. Jose Benitez DP GENERAL IMAGING Edited Resu lt - Final documented in this encounter Visit Diagnoses Diagnosis Left foot pain Pain in limb documented in this encounter Care Teams Snack Stewardess Relationship Specialty Start Date End Date Laine Echeverria MD [address] [place] [address] PCP - General INTERNAL MEDICINE 11/11/18 documented as of this encounter
--- OUTSIDE RECORDS SUMMARY | 2024-03-17 19:28 | XMS_ITS | Encounter Summary ---
Author Organization [facility] Address [address] [place] [address]. [place] [address] [place] [address] Care Team Providers Care Matrix Supervisor Name Role Phone Laine Echeverria MD Primary Care Provider [phone] Reason for Visit * Reason Onset Date Comments Prior Authorization 07/05/2021 Encounter Details Date Type Department Care Team ([facility] st Contact Info) Description 07/05/2021 Telephone [facility] ld [address] [place] [address] Sulma Meadows, TRAVELING BUYER, BICYCLE RENTAL CLERK-C [address] [facility] [address] [place] [address] Prior Authorization Social History Tobacco Use Types Packs/Day Years [...] as of this encounter Progress Notes * Missy Chopra LPN - 07/13/2021 12:22 PM CDT Mg pre auth team has faxed auth to [facility]. * Rachel Kim LPN - 07/05/2021 9:39 AM CDT Liliana called to see if authorization had been approved for the upcoming [place] test on 07/17, message sent to [facility] referrals to see if it has been received. documented in this encounter Plan of Treatment Not on file documented as of this encounter Visit Diagnoses Not on filedocumented in this encounter Care Teams Matrix Supervisor Relationship Specialty Start Date End Date Laine Echeverria MD [address] [place] [address] PCP - General INTERNAL MEDICINE 11/11/18 documented as of this encounter
--- OUTSIDE RECORDS SUMMARY | 2024-03-17 19:28 | XMS_ITS | Encounter Summary ---
Author Organization [facility] Address [facility]6 [facility] [place] [address] [place] [address] Care Team Providers Care Psychiatric Technician Name Role Phone Oseas Peres MD Primary Care Provider [phone] Reason for Referral * Imaging (Routine) - Closed Specialty Diagnoses / Procedures Referred By Myriam t Referred To Contact RADIOLOGY Diagnoses Chest pain, unspecified type Primary hypertension Abnormal EKG Procedures NM EXER NUC STRESS TEST 1DAY Sulma Meadows APRN, NP-C [address] [id number] [place] [address] Phone: tel: fax: Referral ID Status Reason Start Date Expiration Date Visits Re quested Visits Authorized [id number] Closed 07/13/2021 01/09/2022 1 1 Reason for Visit * Reason Comments Consult Chest Pain Encounter Details Date Type Department Care Team (Late st Contact Info) Description 06/26/2021 8:30 AM CDT Office Visit [facility] [address] [place] [address] Sulma Meadows APRN, NP-C [address] [address] Consult; Chest Pain Social History Tobacco Use Types Packs/Day Years [...] PM CDT documented as of this encounter Last Filed Vital Signs Vital Sign Reading [...] Mass Index 26.47 06/26/2021 8:35 AM CDT documented in this encounter Patient Instructions * Patient Instructions* Sulma Meadows APRN, NP-C - 06/26/2021 8:30 AM CDT 1. Stress test in [place]. 2. Watch pulse. documented in this encounter Progress Notes * Sulma Meadows APRN, NP-C - 06/26/2021 8:30 AM CDT FROM: Sulma Meadows APRN, NP-C, collaborating physician Bairon Galvan III, M.D. RE: Mell Dumont : 1950 Reason for Visit: Consult and Chest Pain History of Present Illness: Ms. Dumont is a pleasant 70-year-old female seen in the cardiology clinic today in consultation requested by Dr. Peres for evaluation of chest pain. She has a history of hypertension, hyperlipidemia, vertebral artery stenosis, COPD, renal cancer in 2012 s/p nephrectomy, right upper lung lobectomy due to benign mass, and secondary hypothyroidism following radioactive therapy for Grave's disease. She reports that she is doing reasonably well from a cardiac standpoint. She tells me that she has had 3-4 episodes of chest discomfort in the past 10 years. She describes it as an aching that begins in her stomach and radiates up into her jaw. She will have chest tightness around her sternum. She will also hear her heartbeat in her ear. The symptoms will last approximately a minute, and resolve with sitting and deep breathing. She states that these episodes are not triggered by exertion. She is typically quite active, caring for her chickens and gardening. She denies any chest discomfort with exertional activity. She denies any shortness of breath. She denies anyclaudication. She denies any overt symptoms of congestive heart failure such as paroxysmal nocturnal dyspnea, orthopnea, or pedal edema. She has occasional fluttering palpitations. She will have mildlightheadedness with quick position changes, but denies any syncope. She denies signs and symptoms of CVA or TIA. She seems to be tolerating her present medications well without reported side effects. Her cardiac risk factors include hypertension, hyperlipidemia, and former smoking history with cessation in 2007. She denies any history of diabetes. She denies any family history of coronary artery disease, but her father had what sounds to be peripheral vascular disease, and her paternal grandmother had CVAs. Evaluation during the clinic visit included an EKG which confirmed the presence of sinus bradycardia rhythm at a rate of 47 beats per minute. An EKG performed at her primary care office on 06/12/2021 revealed sinus rhythm at a rate of 67 bpm with a septal infarct. The septal infarct is not as pronounced on today's EKG. Her last echocardiogram on 12/14/2004 revealed a normal LVEF with mild mitral and tricuspid regurgitation. Her nuclear stress test in December 2004 did not identify evidence of ischemia. An MRA from 2015 revealed torturous carotid arteries with no stenosis and a probable left vertebral artery occlusion. Recommendations/Plan: Ms. Mclaughlins chest pain is atypical in nature. However, she does have multiple cardiac risk factorsand has not undergone an ischemic evaluation since 2004. Therefore, further evaluation seems reasonable. I have recommended the following to Ms. Dumont: 1. Chest Pain, Abnormal EKG. We will plan for a nuclear stress test at her local hospital. If this does not reveal any ischemia, her chest pain is likely noncardiac in origin. In reviewing her chart,it appears that there is an echocardiogram note from February 2013 that suggested a bicuspid aorticvalve with moderate aortic stenosis and mild aortic regurgitation. She does have a slight systolic ejection murmur upon exam. This study is not consistent with her prior study. I will see if we can find the actual echocardiogram results rather than an imported dictation. We may repeat a study if this is actually her echocardiogram. 2. Bradycardia. She is quite bradycardic in the office today. She is on clonidine, which can lead to some bradycardia. She is asymptomatic, and was not bradycardic at her last primary care office. Her TSH in February was within normal limits. I encouraged her to continue monitoring her pulse, and notify either our office or her primary care office if it is persistently less than 50 bpm. 3. Vertebral Artery Occlusion. Her MRA in 2015 suggested a left vertebral artery occlusion. She is asymptomatic at this point. No further testing is needed at this time. 4. Hypertension. Her blood pressure is reasonably controlled in the office today. She will continueher current medications. 5. Hyperlipidemia. She is currently treated with atorvastatin and denies any reported side effects.An LDL less than 100 is recommended, and her most recent lipid panel from 02/24/2021 demonstrated reasonable control with a total cholesterol 189, LDL 101, HDL 56, triglycerides 162. 6. Preoperative Cardiac Risk Assessment. She is planning to undergo a bladder repair in the near future. This is an intermediate risk procedure from a cardiovascular standpoint. If her stress test does not reveal any significant abnormalities, I do not see any cardiac reason to prohibit her from undergoing surgery. We will plan to see Ms. Dumont on an as-needed basis pending her final test results. I have encouraged her to contact me in the meantime should she have any questions or problems. Medications: Current Outpatient Medications: ??? albuterol sulfate HFA 108 (90 Base) MCG/ACT inhaler, Inhale 2 puffs into the lungs every 6 (six) hours as needed., Disp: , Rfl: ??? amLODIPine (NORVASC) 10 MG tablet, Take 1 tablet by mouth daily., Disp: , Rfl: ??? aspirin EC (ASPIRIN EC) 81 MG tablet, Take 1 tablet by mouth daily., Disp: , Rfl: ??? atorvastatin 10 MG tablet, Take 10 mg by mouth daily., Disp: , Rfl: ??? BREO ELLIPTA 200-25 MCG/INH inhaler, Inhale 1 puff into the lungs daily. , Disp: , Rfl: ??? citalopram 20 MG tablet, Take 20 mg by mouth daily., Disp: , Rfl: ??? cloNIDine 0.1 MG tablet, Take 0.1 mg by mouth 2 (two) times daily., Disp: , Rfl: ??? fluticasone propionate 50 MCG/ACT nasal spray, 2 sprays by Nasal route daily., Disp: , Rfl: ??? levothyroxine 112 MCG tablet, TAKE 1 TABLET BY MOUTH DAILY ON SATURDAY- SATURDAY AND 1/2 TABLET ONSUNDAY, Disp: , Rfl: ??? Multiple Vitamin (MULTIVITAMIN ADULT OR), Take 1 tablet by mouth daily., Disp: , Rfl: ??? omeprazole 20 MG capsule, Take 20 mg by mouth daily., Disp: , Rfl: Allergies Allergen Reactions ??? Augmentin [Amoxicillin-Pot Clavulanate] Nausea and Vomiting ??? Codeine Nausea and Vomiting ??? Niacin Swelling Facial swelling Past Medical History: Diagnosis Date ??? Bilateral primary osteoarthritis of first carpometacarpal joints ??? Chronic rhinitis ??? COPD (chronic obstructive pulmonary disease) (CMS/HCC) ??? Dysthymic disorder ??? GERD with esophagitis ??? Graves disease ??? Hypertension ??? Hypertensive chronic kidney disease with stage 1 through stage 4 chronic kidney disease, or unspecified chronic kidney disease ??? Impaired fasting glucose ??? Incomplete uterovaginal prolapse ??? Macular degeneration ??? Mixed hyperlipidemia ??? Other microscopic hematuria ??? Secondary hypothyroidism Past Surgical History: Procedure Laterality Date ??? APPENDECTOMY ??? HC REPAIR SLING BLADDER DEFECT ??? HYSTERECTOMY ??? LAPAROSCOPIC CHOLECYSTECTOMY ??? NEPHRECTOMY Right 08/2012 right radical for renal cell cancer ??? REMOVAL OF LUNG,LOBECTOMY Right upper lobe Social History Tobacco Use ??? Smoking status: Former Smoker Quit date: 2009 Years since quittin.2 ??? Smokeless tobacco: Never Used Family History Problem Relation Name Age of Onset ??? Breast Cancer Sister ??? Other (PVD) Father ??? Stroke Paternal Grandmother Family Status Relation Name Status ??? Sister (Not Specified) ??? Mother ??? Father ??? PGM Review of Systems Constitutional: Negative for recent unintentional weight gain, recent unintentional weight loss andnew or significant fatigue. HENT: Negative for new or significant hearing loss. Eyes: Negative for blurred vision and double vision. Respiratory: Negative for cough, new or significant shortness of breath and snoring. Cardiovascular: See HPI. Positive for chest pain. Gastrointestinal: Negative for blood in stool and melena. Genitourinary: Negative for dysuria. Musculoskeletal: Negative for myalgias and new or worsening joint stiffness/pain. Skin: Negative for rash. Neurological: Negative for tingling/numbness and focal weakness. Endo/Heme/Allergies: Negative for new or significant bruising/bleeding and polydipsia. Psychiatric/Behavioral: Negative for depression and new or significant memory loss. Vitals: 06/26/21 0835 BP: 138/70 Patient Position: Sitting BP Location: Right arm Pulse: (!) 47 Weight: 69.9 kg (154 lb 3.2 oz) Height: 5' 4 (1.626 m) Body mass index is 26.47 kg/m??. Cardiac Exam Rate/Rhythm: Normal rate and regular rhythm. PMI: Pulses: Normal pulses. Dorsalis pedis pulses are 2+ on the right side and 2+ on the left side. Posterior tibial pulses are 2+ on the right side and 2+ on the left side. Heart Sounds: Normal S1 sounds. Normal S2 sounds. No gallop present. No S3. No S4. Murmurs: Murmur present Systolic murmur is present with a grade of 1/6. Edema left: 0. Edema Right: 0. Physical Exam Constitutional: No distress. Healthy Appearance. HENT: Mask. Eyes: Pupils equal, round, and reactive to light. Conjunctivae normal. Neck: Neck supple. No JVD. Abdomen: Abdomen soft. Bowel sounds normal. No distension. No tenderness. Abdominal aorta not palpably enlarged. No abdominal bruit present. Pulmonary: Effort normal. Breath sounds normal. Skin: Dry. Warm. No rash. No jaundice. No cyanosis. No clubbing. No xanthoma. Musculoskeletal: No kyphosis. Normal ROM. Neurological: Alert. Oriented x 3. Comments: Diagnoses/Impression: 1. Abnormal EKG NM EXER NUC STRESS TEST 1DAY 2. Chest pain, unspecified type NM EXER NUC STRESS TEST 1DAY 3. Bradycardia 4. Vertebral artery occlusion, left 5. Primary hypertension NM EXER NUC STRESS TEST 1DAY 6. Hyperlipidemia, unspecified hyperlipidemia type Referring Provider: Oseas Peres MD PCP: OSEAS PERES MD documented in this encounter Plan of Treatment Not on file documented as of this encounter Procedures Procedure Name Priority Date/Time Associated Diagnosis Comments ELECTROCARDIOGRAM (NON MIDMARK ACQUIRED) Routine 06/26/2021 8:33 AM CDT Chest pain, unspecified type Primary hypertension documented in this encounter Results * NM EXER NUC STRESS TEST 1DAY (07/17/2021) Anatomical Region Laterality Modality Cardiac Nuclear Medicine us KENZIE Lopez APRN NUC MED Final Result * ELECTROCARDIOGRAM (06/26/2021 8:33 AM CDT) 06/26/2021 8:33 AM CDT Narrative [facility] - 06/27/2021 8:29 AM CDT ? [facility] ?[address], [place] ??[address] ? Test Date: ?2021-06-26 Pat Name: ? MELL JULIA ? Department: ?? 105 ? Room: ? Gender: ? Female ? [employer] Department Head: ?? : ?1950 ? Requested By: BAIRON GALVAN Order Number: [id number] ?Reading MD: ?? Bairon Galvan ? Measurements Intervals ?[place] ? Rate: ? 47 ? P: ?44 VT: ? 181 ?QRS: ?31 QRSD: ? 86 ? T: ?53 QT: ? 469 ? QTc: ?418 ? Interpretive Statements SINUS BRADYCARDIA Procedure Note Bairon Galvan MD - 06/27/2021 [facility] [address] [place] [address] Test Date: 2021-06-26 Pat Name: MELL DUMONT Department: 105 Room: Gender: Female [employer] Department Head: : 1950 Requested By: BAIRON GALVAN Order Number: [id number] Reading MD: Bairon Galvan Measurements Intervals [place] Rate: 47 P: 44 VT: 181 QRS: 31 QRSD: 86 T: 53 QT: 469 QTc: 418 Interpretive Statements SINUS BRADYCARDIA us Bairon Galvan MD PROCEDURES-ORDERABLE NO NELLIE RGE Final Result [facility] documented in this encounter Visit Diagnoses Diagnosis Abnormal EKG- Primary Nonspecific abnormal electrocardiogram (ECG) (EKG) Chest pain, unspecified type Bradycardia Other specified cardiac dysrhythmias Vertebral artery occlusion, left Primary hypertension Unspecified essential hypertension Hyperlipidemia, unspecified hyperlipidemia type documented in this encounter Care Teams Psychiatric Technician Relationship Specialty Start Date End Date Oseas Peres MD [address] [place] [id number] PCP - General INTERNAL MEDICINE 11/11/18 documented as of this encounter
--- OUTSIDE RECORDS SUMMARY | 2024-03-17 19:29 | XMS_ITS | Encounter Summary ---
Author Organization [facility] Address [facility] [place] [address] [place] [address] Care Team Providers Care Mailroom Clerk Name Role Phone Unavailable Primary Care Provider Unavailabl e Encounter Details Date Type Department Care Team (Late st Contact Info) Description 11/29/2015 Orders [place] [address] , Generic Conversion, Social History Tobacco Use Types Packs/Day Years [...] Name Priority Date/Time Associated Diagnosis Comments CMP (MEDICAL NECESSITY) Routine 11/29/2015 9:26 AM CDT documented in this encounter Results * (ABNORMAL) CMP (MEDICAL NECESSITY) (11/29/2015 9:26 AM CDT) SODIUM S/P/B 139 135 - 147 MMOL/L 11/29/2015 9:51 AM CDT [facility] POTASSIUM S/P/B 4.3 3.5 - 5.0 MMOL/L 11/29/2015 9:51 AM CDT [facility] CHLORIDE S/P/B 103 98 - 107 MMOL/L 11/29/2015 9:51 AM CDT [facility] CO2 28.8 22 - 29 MMOL/L 11/29/2015 9:51 AM CDT [facility] GLUCOSE 98 70 - 109 MG/DL 11/29/2015 9:51 AM CDT [facility] BUN 21(H) 10 - 20 MG/DL 11/29/2015 9:51 AM CDT [facility] CREATININE S/P/B 1.28(H) 0.60 - 1.10 MG/DL 11/29/2015 9:51 AM CDT [facility] CALCIUM S/P/B 9.8 8.8 - 10.0 MG/DL 11/29/2015 9:51 AM CDT [facility] BILIRUBIN TOTAL S/P/B 0.6 0.2 - 1.2 MG/DL 11/29/2015 9:51 AM T [facility] ALKALINE PHOSPHATASE S/P/B 123 55 - 142 U/L 11/29/2015 9:51 AM CDT [facility] AST 30 5 - 35 U/L 11/29/2015 9:51 AM T [facility] ALT 19 0 - 55 U/L 11/29/2015 9:51 AM T [facility] TOTAL PROTEIN S/P/B 7.6 6.0 - 8.3 G/DL 11/29/2015 9:51 AM T [facility] ALBUMIN S/P/B 4.6 3.4 - 4.9 G/DL 11/29/2015 9:51 AM T [facility] ANION GAP 7.2 MMOL/L 11/29/2015 9:51 AM T [facility] OSMOLALITY (CALC) 280 MOSM/KG 11/29/2015 9:51 AM CDT [facility] EGFR NON-AFR. AMER. 42(L) >60 ML/MIN/1.7 3 M2 11/29/2015 9:51 AM CDT [facility] EGFR AFR. AMER. 51(L) >60 ML/MIN/1.7 3 M2 11/29/2015 9:51 AM CDT [facility] PLASMA SPECIMEN / Unknown 11/29/2015 9:26 AM CDT 11/29/2015 9:27 AM CDT us Generic Conversion Md [facility] Final R esult [facility] [address] [place] [address], [id number] documented in this encounter Visit Diagnoses Not on filedocumented in this encounter
--- OUTSIDE RECORDS SUMMARY | 2024-03-17 19:29 | XMS_ITS | Encounter Summary ---
Author Organization [facility] Address [facility] [place] [address] [place] [address] Care Team Providers Care Marble Setter Name Role Phone Unavailable Primary Care Provider Unavailabl e Encounter Details Date Type Department Care Team (Late st Contact Info) Description 04/26/2015 Abstract [facility] [address] [place] [address] Timo Krishna MD [address] [place] [address], [address] [place] [address] Social History Tobacco Use Types Packs/Day Years [...] documented as of this encounter Visit Diagnoses Diagnosis Dizziness and giddiness documented in this encounter
--- OUTSIDE RECORDS SUMMARY | 2024-03-17 19:29 | XMS_ITS | Encounter Summary ---
Author Organization [facility] Address [facility]6 [facility] [place] [address] [place] [address] Care Team Providers Care Deblocker Name Role Phone Unavailable Primary Care Provider Unavailabl e Encounter Details Date Type Department Care Team (Late st Contact Info) Description 04/18/2015 Abstract [facility] [address] [place] [address] Timo Krishna MD [address] [place] [address], [address] [place] [address] Social History Tobacco Use Types Packs/Day [...] as of this encounter Visit Diagnoses Diagnosis Occlusion and stenosis of unspecified carotid artery documented in this encounter
--- OUTSIDE RECORDS SUMMARY | 2024-03-17 19:29 | XMS_ITS | Encounter Summary ---
Author Organization [facility] Address [facility]6 [facility] [place] [address] [place] [address] Care Team Providers Care Research Compliance Specialist Name Role Phone Unavailable Primary Care Provider Unavailabl e Encounter Details Date Type Department Care Team (Late st Contact Info) Description 08/25/[address] [facility] [address] [place] [address] Jayson Costello MD [address] [place] [address] Social History Tobacco Use Types Packs/Day Years [...] as of this encounter Visit Diagnoses Diagnosis Other diseases of lung documented in this encounter
--- OUTSIDE RECORDS SUMMARY | 2024-03-17 19:29 | XMS_ITS | Encounter Summary ---
Author Organization [facility] Address [facility] [place] [address] [place] [address] Care Team Providers Care Coper Hand Name Role Phone Unavailable Primary Care Provider Unavailabl e Encounter Details Date Type Department Care Team (Late st Contact Info) Description 01/06/2004 Abstract [facility] [address] [place] [address] [place] [address] [place] [phone] Social History Tobacco Use Types Packs/Day Years Used Date Smoking Tobacco: Never Assessed Comments Unknown Sex and Gender Information Value [...]
--- OUTSIDE RECORDS SUMMARY | 2024-03-17 19:29 | XMS_ITS | Encounter Summary ---
Author Organization [facility] Address [facility] [place] [address] [place] [address] Care Team Providers Care Child And Adolescent Psychologist Name Role Phone Unavailable Primary Care Provider Unavailabl e Encounter Details Date Type Department Care Team (Late st Contact Info) Description 09/03/2012 Abstract [facility] [address] [place] [address] Ignacio Hung, DO [address] [place] [address] Social History Tobacco Use Types Packs/Day Years [...] as of this encounter Visit Diagnoses Diagnosis Pre-procedural laboratory examination documented in this encounter
--- OUTSIDE RECORDS SUMMARY | 2024-03-17 19:29 | XMS_ITS | Encounter Summary ---
Author Organization [facility] Address [facility]6 [facility]. [place], [place] [address] [place] [address] Care Team Providers Care Bilingual Research Interviewer Name Role Phone Unavailable Primary Care Provider Unavailabl e Encounter Details Date Type Department Care Team (Late st Contact Info) Description 04/29/2015 [facility] [address] [place] [address] , Tia Sanchez MD Social History Tobacco Use Types Packs/Day [...]
--- OUTSIDE RECORDS SUMMARY | 2024-03-17 19:29 | XMS_ITS | Encounter Summary ---
Author Organization [facility] Address [facility]6 [facility] [place] [address] [place] [address] Care Team Providers Care Technology Trainer Name Role Phone Unavailable Primary Care Provider Unavailabl e Encounter Details Date Type Department Care Team (Late st Contact Info) Description 01/06/[address] [facility] [address] [place] [address] [place] [address] [place] [phone] Social History Tobacco Use Types Packs/Day [...]
--- OUTSIDE RECORDS SUMMARY | 2024-03-17 19:29 | XMS_ITS | Encounter Summary ---
Author Organization [facility] Address [facility]. [place], [place] [address] [place] [address] Care Team Providers Care Automatic Stacker Name Role Phone Unavailable Primary Care Provider Unavailabl e Encounter Details Date Type Department Care Team (Late st Contact Info) Description 04/01/2015 Abstract [facility] [address] [place] [address] , Tia Sanchez MD Social History Tobacco [...]
--- OUTSIDE RECORDS SUMMARY | 2024-03-17 19:29 | XMS_ITS | Encounter Summary ---
Author Organization [facility] Address [facility] [place], [place] [address] [place] [address] Care Team Providers Care Business Objects Analyst Name Role Phone Unavailable Primary Care Provider Unavailabl e Encounter Details Date Type Department Care Team (Late st Contact Info) Description 04/01/2015 [facility] [address] [place] [address] , Tia Sanchez MD Social History Tobacco [...]
--- OUTSIDE RECORDS SUMMARY | 2024-03-17 19:29 | XMS_ITS | Encounter Summary ---
Author Organization [facility] Address [facility]6 [facility] [place] [address] [place] [address] Care Team Providers Care Tap Dancer Name Role Phone Unavailable Primary Care Provider Unavailabl e Encounter Details Date Type Department Care Team (Late st Contact Info) Description 11/29/2015 Abstract [facility] [address] [place] [address] Ignacio Hung, DO [address] [place] [address] Social History Tobacco Use Types Packs/Day Years [...] as of this encounter Visit Diagnoses Diagnosis Encounter for observation for other suspected diseases and conditions ruled out documented in this encounter
--- OUTSIDE RECORDS SUMMARY | 2024-03-17 19:29 | XMS_ITS | Encounter Summary ---
Author Organization [facility] Address Replaced by [facility] [place] [address] [place] [address] Care Team Providers Care Environmental Scientists Name Role Phone Unavailable Primary Care Provider Unavailabl e Encounter Details Date Type Department Care Team (Late st Contact Info) Description 11/25/2014 Abstract [facility] AT [address] [place] [address] Tia Matta MD Social History Tobacco Use Types Packs/Day [...] Procedure Name Priority Date/Time Associated Diagnosis Comments LIPID PANEL Routine 11/25/2014 12:00 AM CDT documented in this encounter Results * LIPID PANEL (11/25/2014 12:00 AM CDT) TRIGLYCERIDES 308 0 - 150 mg/dl MEDINFORMATIX TO EPIC CONVERSION CHOLESTEROL 213 0 - 200 mg/dl MEDINFORMATIX TO EPIC CONVERSION HDL 45 40 - 59 mg/dl MEDINFORMATIX TO EPIC CONVERSION LDL CONVERSION 106 0 - 100 mg/dl MEDINFORMATIX TO EPIC CONVERSION CHOL/HDL RATIO 4.7 <4.0 (Calc) MEDINFORMATIX TO EPIC CONVERSION LDL/HDL 2.4 <3.0 Calc MEDINFORMA TIX TO EPIC CONVERSION 11/25/2014 11/25/2014 Narrative MEDINFORMATIX TO EPIC CONVERSION - 04/15/2015 11:43 AM HOOP RIVETING MACHINE OPERATOR HELPER Reviewed by CHRISTI Apr 15 2015 11:43:18:000AM us Generic Conversion Md [facility] Final R esult MEDINFORMATIX TO EPIC CONVERSION documented in this encounter Visit Diagnoses Not on filedocumented in this encounter
--- OUTSIDE RECORDS SUMMARY | 2024-03-17 19:29 | XMS_ITS | Encounter Summary ---
Author Organization [facility] Address [facility] [facility] [place] [address] [place] [address] Care Team Providers Care Continuous Pickling Line Pickler Helper Name Role Phone Unavailable Primary Care Provider Unavailabl e Encounter Details Date Type Department Care Team (Late st Contact Info) Description 10/11/2017 Abstract [facility] [address] [address] Laine Echeverria MD [address] [place] [address] Social History Tobacco Use Types Packs/Day Years [...] Procedure Name Priority Date/Time Associated Diagnosis Comments BASIC METABOLIC PANEL Routine 10/11/2017 11:45 AM CDT documented in this encounter Results * (ABNORMAL) BASIC METABOLIC PANEL (10/11/2017 11:45 AM CDT) GLUCOSE 83 70 - 99 MG/DL 10/11/2017 12:11 PM CDT [facility] BUN 24(H) 10 - 20 MG/DL 10/11/2017 12:11 PM CDT [facility] CREATININE S/P/B 1.31(H) 0.57 - 1.11 MG/DL 10/11/2017 12:11 PM CDT [facility] SODIUM S/P/B 137 136 - 145 MMOL/L 10/11/2017 12:11 PM CDT [facility] POTASSIUM S/P/B 4.2 3.5 - 5.1 MMOL/L 10/11/2017 12:11 PM CDT [facility] CHLORIDE S/P/B 104 98 - 107 MMOL/L 10/11/2017 12:11 PM CDT [facility] CO2 25.0 22.0 - 29.0 MMOL/L 10/11/2017 12:11 PM CDT [facility] CALCIUM S/P/B 9.7 8.4 - 10.2 MG/DL 10/11/2017 12:11 PM CDT [facility] EGFR NON-AFR. AMER. 43(L) >60 ML/MIN/1.7 3 M2 10/11/2017 12:11 PM CDT [facility] EGFR AFR. AMER. 52(L) >60 ML/MIN/1.7 3 M2 10/11/2017 12:11 PM CDT [facility] ANION GAP 8.0 7 - 16 MMOL/L 10/11/2017 12:11 PM T [facility] 10/11/2017 11:4 5 AM CDT 10/11/2017 11:48 AM CDT us Generic Conversion Md [facility] Final R esult [facility] [address] [place] [address], documented in this encounter Visit Diagnoses Diagnosis Chronic kidney disease, stage III (moderate) (CMS/HCC HHS/HCC) Chronic kidney disease, Stage III (moderate) documented in this encounter
--- OUTSIDE RECORDS SUMMARY | 2024-03-17 19:29 | XMS_ITS | Encounter Summary ---
Author Organization [facility] Address [facility]6 [facility] [place] [address] [place] [address] Care Team Providers Care Audit Intern Name Role Phone Unavailable Primary Care Provider Unavailabl e Encounter Details Date Type Department Care Team (Late st Contact Info) Description 12/07/2014 Abstract [facility] [address] [place] [address] Ignacio Hung, DO [address] [place] [address] Social History Tobacco Use Types Packs/Day Years [...] as of this encounter Visit Diagnoses Diagnosis Diverticulitis of colon Diverticulitis of colon (without mention of hemorrhage) documented in this encounter
--- OUTSIDE RECORDS SUMMARY | 2024-03-17 19:29 | XMS_ITS | Encounter Summary ---
Author Organization [facility] Address [facility]6 [facility] [place] [address] [place] [address] Care Team Providers Care Shareholder Name Role Phone Unavailable Primary Care Provider Unavailabl e Encounter Details Date Type Department Care Team (Late st Contact Info) Description 04/18/2015 Abstract [facility] AT [address] [place] [address] , Tia Sanchez MD Social History Tobacco Use Types Packs/Day Years Used Date Smoking Tobacco: Smoker, Current Status Unknown Comments Unknown Sex and Gender Information Value Date Recorded Sex Assigned at Not on file Legal Sex Female 9:01 PM CDT Gender Identity Female 06/26/2021 7:55 AM CDT Sexual Orientation Not on file documented as of this encounter Last Filed Vital Signs Vital Sign Reading Time Taken Comments Blood Pressure 138/72 04/18/2015 3:06 PM RUBBER TIRE AND TUBES SUPERVISOR Pulse 69 04/18/2015 3:05 PM RUBBER TIRE AND TUBES SUPERVISOR Temperature - - Respiratory Rate 16 04/18/2015 3:05 PM RUBBER TIRE AND TUBES SUPERVISOR Oxygen Saturation - - Inhaled Oxygen Concentration - - Weight 67.1 kg (148 lb) 04/18/2015 3:05 PM RUBBER TIRE AND TUBES SUPERVISOR Height 165.1 cm (5' 5 ) 04/18/2015 3:05 PM RUBBER TIRE AND TUBES SUPERVISOR Body Mass Index 24.63 04/18/2015 3:05 PM RUBBER TIRE AND TUBES SUPERVISOR documented in this encounter Plan of Treatment Not on file documented as of this encounter Visit Diagnoses Not on filedocumented in this encounter
--- OUTSIDE RECORDS SUMMARY | 2024-03-17 19:29 | XMS_ITS | Encounter Summary ---
Author Organization [facility] Address [facility]6 [facility] [place] [place] [address] [place] [address] Care Team Providers Care Real Estate Director Name Role Phone Unavailable Primary Care Provider Unavailabl e Encounter Details Date Type Department Care Team (Late st Contact Info) Description 04/26/2015 Abstract [facility] AT [address] [place] [address] , Generic ConversionMD Social History Tobacco Use Types Packs/Day Years [...] Procedure Name Priority Date/Time Associated Diagnosis Comments CREATININE Routine 04/26/2015 11:09 AM APPLICATION DBA documented in this encounter Results * CREATININE (04/26/2015 11:09 AM APPLICATION DBA) CREATININE S/P/B 1.2 0.6 - 1.3 mg/dL MEDINFORMATIX TO EPIC CONVERSION TIME TEST WAS PERFORMED: 1109 MEDINFORMATIX T O EPIC CONVERSION 04/26/2015 11:0 9 AM APPLICATION DBA 04/26/2015 11:09 AM APPLICATION DBA Narrative MEDINFORMATIX TO EPIC CONVERSION - 04/26/2015 11:30 AM APPLICATION DBA Reviewed by CHRISTI Hathaway ??9 2015 12:50:17:000PM us Generic Conversion Md [facility] Final R esult MEDINFORMATIX TO EPIC CONVERSION documented in this encounter Visit Diagnoses Not on filedocumented in this encounter
--- OUTSIDE RECORDS SUMMARY | 2024-03-17 19:29 | XMS_ITS | Encounter Summary ---
Author Organization [facility] Address [facility]6 [place] [address] [place] [address] Care Team Providers Care Transfer Pumper Name Role Phone Unavailable Primary Care Provider Unavailabl e Encounter Details Date Type Department Care Team (Late st Contact Info) Description 09/04/2012 Abstract [facility] [address] [place] [address] Jayson Costello MD [address] [place] [address] Social History Tobacco Use Types [...] as of this encounter Visit Diagnoses Diagnosis Malignant neoplasm of kidney excluding renal pelvis (CMS/HCC HHS/HCC) Malignant neoplasm of kidney, except pelvis documented in this encounter
--- OUTSIDE RECORDS SUMMARY | 2024-03-17 19:29 | XMS_ITS | Encounter Summary ---
Author Organization [facility] Address [facility] [place] [address] [place] [address] Care Team Providers Care Bakery Clerk Name Role Phone Unavailable Primary Care Provider Unavailabl e Encounter Details Date Type Department Care Team (Late st Contact Info) Description 09/03/[address] [facility] [address] [place] [address] Jayson Costello MD [address] [place] [address] Social History Tobacco Use Types [...]
--- OUTSIDE RECORDS SUMMARY | 2024-03-17 19:29 | XMS_ITS | Encounter Summary ---
Author Organization [facility] Address [facility]6 [facility] [place] [address] [place] [address] Care Team Providers Care Prototype Technician Name Role Phone Unavailable Primary Care Provider Unavailabl e Encounter Details Date Type Department Care Team (Late st Contact Info) Description 03/30/2015 Abstract [facility] AT [address] [place] [address] Tia Matta MD Social History Tobacco Use [...] Procedure Name Priority Date/Time Associated Diagnosis Comments COMPREHENSIVE METABOLIC PANEL Routine 03/30/2015 12:00 AM PHOTOGRAPHER LITHOGRAPHIC documented in this encounter Results * COMPREHENSIVE METABOLIC PANEL (03/30/2015 12:00 AM PHOTOGRAPHER LITHOGRAPHIC) SODIUM S/P/B 141 135 - 146 meq/l MEDINFORMATIX TO EPIC CONVERSION POTASSIUM S/P/B 4.6 3.5 - 5.3 meq/l MEDINFORMATIX TO EPIC CONVERSION CHLORIDE S/P/B 101 95 - 108 meq/l MEDINFORMATIX TO EPIC CONVERSION CO2 30 17 - 31 meq/l MEDINFORMATIX TO EPIC CONVERSION GLUCOSE 85 70 - 125 mg/dl MEDINFORMATIX TO EPIC CONVERSION BUN 24 7 - 25 mg/dl MEDINFORMATIX TO EPIC CONVERSION CREATININE S/P/B 1.29 0.5 - 1.4 mg/dl MEDINFORMATIX TO EPIC CONVERSION CALCIUM S/P/B 9.5 8.5 - 10.3 mg/dl MEDINFORMATIX TO EPIC CONVERSION BILIRUBIN TOTAL S/P/B 0.52 0.0 - 1.3 mg/dl MEDINFORMATIX TO EPIC CONVERSION ALK PHOS 108 20 - 125 u/l MEDINFORMATIX TO EPIC CONVERSION AST 35 0 - 42 u/l MEDINFORM ATIX TO EPIC CONVERSION ALT 28 0 - 48 u/l MEDINFORM ATIX TO EPIC CONVERSION TOTAL PROTEIN S/P/B 7.6 6.0 - 8.5 g/dl MEDINFORMATIX TO EPIC CONVERSION ALBUMIN S/P/B 4.4 3.2 - 5.0 G/DL MEDINFORMATIX TO EPIC CONVERSION EGFR NON-AFR. AMER. 44 >60 ml/min/1.7 3 sq.m MEDINFORMATIX TO EPIC CONVERSION 03/30/2015 03/30/2015 Narrative MEDINFORMATIX TO EPIC CONVERSION - 04/15/2015 11:45 AM PHOTOGRAPHER LITHOGRAPHIC Reviewed by CHRISTI Apr 15 2015 11:46:05:000AM us Generic Conversion Md [facility] Final R esult MEDINFORMATIX TO EPIC CONVERSION documented in this encounter Visit Diagnoses Not on filedocumented in this encounter
--- OUTSIDE RECORDS SUMMARY | 2024-03-17 19:29 | XMS_ITS | Encounter Summary ---
Author Organization [facility] Address [facility]6 [facility]. [place], [place] [address] [place] [address] Care Team Providers Care Edger Runner Name Role Phone Unavailable Primary Care Provider Unavailabl e Encounter Details Date Type Department Care Team (Late st Contact Info) Description 04/18/2015 Carlyn [facility] AT [address] [place] [address] , Tia Sanchez MD Social History Tobacco [...]
--- OUTSIDE RECORDS SUMMARY | 2024-03-17 19:29 | XMS_ITS | Encounter Summary ---
Author Organization [facility] Address [facility] access hospital6 [facility] [place] [address] [place] [address] Care Team Providers Care Entertainment Reporter Name Role Phone Unavailable Primary Care Provider Unavailabl e Encounter Details Date Type Department Care Team (Late st Contact Info) Description 02/18/2013 Abstract [facility] AT [address] [place] [address] , Tia Sanchez MD Social History Tobacco [...] Procedure Name Priority Date/Time Associated Diagnosis Comments EXTERNAL EJECTION FRACTION Routine 02/18/2013 12:00 AM FASHION SHOW DIRECTOR documented in this encounter Results * EXTERNAL EJECTION FRACTION (02/18/2013 12:00 AM FASHION SHOW DIRECTOR) EJECTION FRACTION 55-60 [facility] Comment: 1. Aortic valve is bicuspid. 2. Moderate aortic stenosis. 3. Mild aortic regurgiation. 4. LV systolic function is normal, with an EF of estiamted to be 55-60%. 5. Mild concetric left ventricualr hypertrophy. 6. Grade I diastolic dysfunction of the LV pattern of LV diastolic filling. 7. Mitral valve regurgiation.Addendum Additional doppler measurements were made and the peak gradient across the aortic valve is 56 mm HG and mean of 32 mm Hg indicating there is moderately severe to severe aortic stenosis. Anatomical Region Laterality Modality Other 02/18/2013 02/18/2013 Narrative 02/18/2013 12:00 AM FASHION SHOW DIRECTOR echo exam of the chest, Deangelo Keyes M.D. us Generic Conversion Md [facility] OTHER Final R esult documented in this encounter Visit Diagnoses Not on filedocumented in this encounter
--- OUTSIDE RECORDS SUMMARY | 2024-03-17 19:29 | XMS_ITS | Encounter Summary ---
Author Organization [facility] Address [facility]6 [place] [address] [place] [address] Care Team Providers Care Machine Grinder Name Role Phone Unavailable Primary Care Provider Unavailabl e Encounter Details Date Type Department Care Team (Late st Contact Info) Description 12/28/2004 Abstract [facility] [address] , Generic Conversion, Social History Tobacco Use [...] Associated Diagnosis Comments EXTERNAL EJECTION FRACTION Routine 12/28/2004 12:00 AM CDT documented in this encounter Results * EXTERNAL EJECTION FRACTION (12/28/2004 12:00 AM CDT) EJECTION FRACTION 80 [facility] Comment:normal Anatomical Region Laterality Modality Other 12/28/2004 12/28/2004 Narrative 12/28/2004 12:00 AM CDT Cardiolite stress test, Shukri Galvan MD us Generic Conversion Md [facility] OTHER Final R esult documented in this encounter Visit Diagnoses Not on filedocumented in this encounter
--- OUTSIDE RECORDS SUMMARY | 2024-03-17 19:29 | XMS_ITS | Encounter Summary ---
Author Organization [facility] Address [facility]6 [place] [address] [place] [address] Care Team Providers Care Farmworker Machine Name Role Phone Unavailable Primary Care Provider Unavailabl e Encounter Details Date Type Department Care Team (Late st Contact Info) Description 07/29/[address] [address] [place] [address] [place] [phone] Social History Tobacco Use Types Packs/Day [...] as of this encounter Visit Diagnoses Diagnosis Hematuria Hematuria, unspecified documented in this encounter
--- OUTSIDE RECORDS SUMMARY | 2024-03-17 19:29 | XMS_ITS | Encounter Summary ---
Author Organization [facility] Address [facility]6 [facility] [place] [address] [place] [address] Care Team Providers Care Block Sorter Name Role Phone Unavailable Primary Care Provider Unavailabl e Encounter Details Date Type Department Care Team (Late st Contact Info) Description 12/30/2003 Abstract [facility] [address] [place] [address] [place] [address] [place] [address] Social History Tobacco Use Types Packs/Day [...]
--- OUTSIDE RECORDS SUMMARY | 2024-03-17 19:29 | XMS_ITS | Encounter Summary ---
Author Organization [facility] Address [address] [place] [address]. [place] [address] [place] [address] Care Team Providers Care Puttying And Calking Supervisor Name Role Phone Laine Echeverria MD Primary Care Provider [phone] Encounter Details Date Type Department Care Team (Late st Contact Info) Description 08/23/2018 Abstract [facility] [address] [place], [place] [id number] , Generic Conversion, Social History Tobacco Use [...] on filedocumented in this encounter Care Teams Puttying And Calking Supervisor Relationship Specialty Start Date End Date Laine Echeverria MD [address] [place] [address] PCP - General INTERNAL MEDICINE 11/11/18 documented as of this encounter
--- OUTSIDE RECORDS SUMMARY | 2024-03-17 19:29 | XMS_ITS | Encounter Summary ---
Author Organization [facility] Address [facility]6 [facility] [place] [address] [place] [address] Care Team Providers Care Housekeeper Home Name Role Phone Unavailable Primary Care Provider Unavailabl e Encounter Details Date Type Department Care Team (Late st Contact Info) Description 01/04/2004 Abstract [facility] [address] [place] [address] [place] [address] [place] [phone] Social History Tobacco Use Types Packs/Day [...]
--- OUTSIDE RECORDS SUMMARY | 2024-03-17 19:29 | XMS_ITS | Encounter Summary ---
Author Organization [facility] Address [facility]6 [facility] [place], [place] [address] [place] [address] Care Team Providers Care Raftsman Name Role Phone Unavailable Primary Care Provider Unavailabl e Encounter Details Date Type Department Care Team (Late st Contact Info) Description 04/29/2015 Abstract [facility] AT [address] [place] [address] , Tia Sanchez MD Social History Tobacco [...]
== END 2024-03-10 10:02 | disposition home or self-care (01) ==
LOC: CHSIMG 10:02
PROVIDERS: PCP Nurse Practitioner Family; Visit Provider Internal Medicine
DX: R10.84 Generalized abdominal pain (principal); R19.7 Diarrhea, unspecified
CPT/HCPCS: 99199

== ENCOUNTER 2024-03-17 10:06 | Outpatient (CLI) | payer MEDICARE, SELFPAY ==
--- NOTE | ~2024-03-17 | CT_ITS ---
Non-contrast CT scan of the Abdomen and Pelvis Clinical indication: Inflammatory bowel disease Technique: 2.5 mm axial scans were obtained through the abdomen and pelvis without intravenous or or al contrast. Dose reduction technique was used on this scan by utilizing automated exposure control a nd iterative reconstruction technique. The dose-length product (DLP) was 266.34 mGy-cm. Findings: Images through the lung bases reveal no abnormalities. Left kidney are unremarkable. Status post right nephrectomy. The liver, spleen, pancreas, and adrenals appear normal. Cholecystectomy clips are present. There are atherosclerotic calcifications of the aorta. . There is no evidence of bowel obstruction. Prior left lower quadrant herniorrhaphy. Colonic diverticu losis noted. Images through the pelvis were performed. There is no evidence of ascites or lymphadenopathy. Urinary bladder unremarkable. No pelvic mass evident. Impression: No acute abnormality. Status post right nephrectomy and cholecystectomy. Prior left lower quadrant herniorrhaphy. Reviewed, dictated and finalized at [facility]. OR SOLUTIONS WORKFLOW CONSULTANT Impression: No acute abnormality. Status post right nephrectomy and cholecystectomy. Prior left lower quadrant he rniorrhaphy.
== END 2024-03-17 10:07 | disposition home or self-care (01) ==
LOC: CHSIMG 10:08
PROVIDERS: PCP Nurse Practitioner Family; Visit Provider Internal Medicine
DX: R19.7 Diarrhea, unspecified (principal); R10.9 Unspecified abdominal pain
CPT/HCPCS: 74176

== ENCOUNTER 2024-12-31 13:22 | Outpatient (CLI) | payer MEDICARE, SELFPAY ==
--- NOTE | ~2024-12-31 | US_ITS ---
US arterial ankle brachial ind INDICATION: Osteoporosis. Bilateral carotid stenosis. Peripheral arterial disease. TECHNIQUE: Segmental pressures and plethysmographic and Doppler waveforms of the brachial and lower extremity arteries were obtained. COMPARISON: None. FINDINGS: Right and left brachial artery pressures of 134 mm Hg and 141 mm Hg, respectively, are concordant (normal difference <= 30 mmHg). The waveforms are biphasic at the ankles. The right ankle-brachial index (RADHA) is 1.13 (normal >= 0.9-1.0). The right great toe-brachial index (TBI) is 1 (normal >= 0.60). The left RADHA is 1.08. The left TBI is 0.68. IMPRESSION: 1. Normal ankle-brachial indices. Reviewed, dictated and finalized at location O.
--- NOTE | ~2024-12-31 | US_ITS ---
Clinical History: OSTEOPOROSIS, B/L CAROTID STENOSIS, PAD LEGS Examination: US carotid duplex BI Comparison: 04/01/2015 Technique: Grayscale, color, duplex/spectral Doppler sonography carotid and vertebral arteries. Distal CCA and Peak ICA systolic velocities provided. Society of Radiologists in Ultrasound (SRU) consensus criteria utilized, indirectly assessing stenosis by velocities. Findings: Scattered plaque. Tortuous left common carotid artery. Right side: CCA - 92 cm/sec. ICA - 67 cm/sec. ICA/CCA - 0.7 Left Side: CCA - 209 cm/sec. ICA - 91 cm/sec. ICA/CCA - 0.4 Normal antegrade flow measured bilateral vertebral arteries. IMPRESSION: 1. No hemodynamically significant ICA stenosis (i.e., if any stenosis, less than 50%). 2. Normal bilateral antegrade vertebral artery flow. Stenosis measured by Society of Radiologists in Ultrasound (SRU) criteria. Reviewed, dictated and finalized at location R. IMPRESSION: 1. No hemodynamically significant ICA stenosis (i.e., if any stenosis, less th an 50%). 2. Normal bilateral antegrade vertebral artery flow. Stenosis measured by Society of Radiologists in Ultrasound (SRU) criteria.
--- OUTSIDE RECORDS SUMMARY | 2024-12-31 15:16 | XMS_ITS | Clinical Summary ---
Author Organization [facility] Address [address] [place] [address] Care Team Providers Care Straddle Truck Operator Name Role Phone Laine Echeverria MD Primary Care Provider [phone] Allergies Active Allergy Reactions Criticality Noted Date [...] TAKE 1 TABLET BY MOUTH DAILY ON AND 1/2 TABLET ON Saturday05/12/2021 Active BREO [...] A M CDT Height 162.6 cm (5' 4) 06/26/2021 8:35 AM CDT Body Mass Index 26.47 06/26/2021 8:35 AM CDT Plan of Treatment Health Maintenance Due Date Last Done Comments Colorectal Cancer Screening Colonoscopy (10 Years) 1950 Hepatitis C 10/21/1967 Zoster Vaccines (1 of 2) 10/21/1999 Annual Medicare Wellness Visit 2014 Dexa Scan (General) 2014 RSV Immunization or 60+ Years (1 - 1-dose 75+ series) 2024 COVID-19 Vaccine ( season) 2024 02/06/2021, 07/20/2020, 06/01/2020, Additional history exists Influenza Adult (#1) 2024 12/26/2020, 11/19/2019, 02/18/2019, Additional history exists DTaP, Tdap and Td Vaccines (2 - Td or Tdap) 12/26/2030 12/26/2020 Pneumococcal Vaccine: 50+ Years Completed 02/18/2019, 12/09/2014 Hepatitis A Vaccines Aged Out No long er eligible based on patient's age to complete this topic Meningococcal B Vaccine Aged Out No l onger eligible based on patient's age to complete this topic Meningococcal Vaccine Aged Out No august franky eligible based on patient's age to complete this topic RSV Immunizations Under 20 Months Aged Out No longer eligible based on patient's age to complete this topic Insurance [employer] MEDICARE Care Teams Straddle Truck Operator Relationship Specialty Start Date End Date Laine Echeverria MD [address] [place] [address] PCP - General INTERNAL MEDICINE 11/11/18
--- OUTSIDE RECORDS SUMMARY | 2024-12-31 15:16 | XMS_ITS | Encounter Summary ---
Author Organization [facility] Address [address] [place] [address] Care Team Providers Care Alarm Service Technician Name Role Phone Laine Echeverria MD Primary Care Provider [phone] Encounter Details Date Type Department Care Team ([facility] st Contact Info) Description 06/14/2021 Abstract [facility] [address] [place] [address] Sulma Meadows, GRACY, GARBAGE WORKER-C [address] [facility] [address] [place] [address] Social History Tobacco Use Types [...] Final Result * HEMOGLOBIN, GLYCOSYLATED (02/24/2021) Pathologist [facility] HGB A1C 5.9 <5.7 % 02/24/2021 us Doc [facility] Final Result * THYROXINE, FREE (FT4) (02/24/2021) Pathologist [facility] FREE T4 1.05 0.76 - 1.46 02/24/2021 us Doc [facility] Final Result * TSH (OUTSIDE LAB) (02/24/2021) Pathologist [facility] TSH 1.92 0.36 - 3.74 02/24/2021 us Doc [facility] LAB-OUTSIDE/ABSTRACTED Final Result * LIPID PANEL (02/24/2021) [facility] CHOLESTEROL 189 0 - 200 HDL 56 40 - 60 TRIGLYCERIDES 162 0 - 150 LDL (CALCULATED) 101 <130 02/24/2021 us Doc [facility] Final Result * (ABNORMAL) CMP (ABSTRACTED LAB) (02/24/2021) Pathologist [facility] SODIUM S/P/B 140 136 - 145 POTASSIUM [...] on filedocumented in this encounter Care Teams Alarm Service Technician Relationship Specialty Start Date End Date Laine Echeverria MD [address] [place] [address] PCP - General INTERNAL MEDICINE 11/11/18 documented as of this encounter
--- OUTSIDE RECORDS SUMMARY | 2024-12-31 15:16 | XMS_ITS | Encounter Summary ---
Author Organization [facility] Address [facility] [place] [address] Care Team Providers Care Mri Supervisor Name Role Phone Laine Echeverria MD Primary Care Provider [phone] Encounter Details Date Type Department Care Team (Late st Contact Info) Description 08/23/2018 Abstract [facility] [address] [place] [address] , Generic Conversion, Social History Tobacco Use [...] on filedocumented in this encounter Care Teams Mri Supervisor Relationship Specialty Start Date End Date Laine Echeverria MD [address] [place] [id number] PCP - General INTERNAL MEDICINE 11/11/18 documented as of this encounter
== END 2024-12-31 13:23 | disposition home or self-care (01) ==
LOC: CHSIMG 13:24
PROVIDERS: PCP Internal Medicine; Visit Provider Internal Medicine
DX: M81.0 Age-related osteoporosis without current pathological fracture (principal); I65.23 Occlusion and stenosis of bilateral carotid arteries; J44.9 Chronic obstructive pulmonary disease, unspecified; I73.9 Peripheral vascular disease, unspecified
CPT/HCPCS: 93880; 93922

== ENCOUNTER 2025-01-11 11:00 | Outpatient (CLI) | payer MEDICARE, SELFPAY ==
--- NOTE | ~2025-01-11 | CT_ITS ---
EXAMINATION:CT lung screening DATE: 01/11/2025 11:19 INDICATION: Personal history of nicotine dependence. TECHNIQUE: Computed tomography (CT) of the chest was performed without intravenous contrast. Automated exposure control and iterative reconstruction technique were employed. The dose-length product (DLP) was 64.86 mGy-cm. COMPARISON: Chest CT 08/08/2023 FINDINGS: There is mild emphysema. There are changes of wedge resection in right lung upper lobe. There is mild atelectasis on the left. Calcified right lung nodules are consistent with old granulomatous disease. No pleural effusion. The heart size is normal. There are coronary artery calcifications. No pericardial effusion. There is a small sliding hiatal hernia. There are changes of cholecystectomy. There is moderate thoracic spondylosis. IMPRESSION: 1. Lung-RADS category 1: Negative. Continue annual screening with noncontrast low-dose chest CT in 12 months. Reviewed, dictated and finalized at location E. IMPRESSION: 1. Lung-RADS category 1: Negative. Continue annual screening with noncontrast l ow-dose chest CT in 12 months.
== END 2025-01-11 11:01 | disposition home or self-care (01) ==
LOC: CHSIMG 11:02
PROVIDERS: PCP Internal Medicine; Visit Provider Internal Medicine
DX: Z12.2 Encounter for screening for malignant neoplasm of respiratory organs (principal); Z87.891 Personal history of nicotine dependence
CPT/HCPCS: 71271

== ENCOUNTER 2025-02-06 09:36 | Emergency (ER) | payer MEDICARE, SELFPAY ==
[2025-02-06] VITALS (23 sets, daily range): BP systolic 150–184; BP diastolic 55–81; PULSE 57–87; RESP 13–27; TEMP 36.4; O2SAT 89–97
--- NOTE | ~2025-02-06 | XR_ITS ---
Examination: XR chest 1V portable Clinical History: Lt. side chest pain Comparison: CT chest 01/11/2025 Technique: Portable AP Findings: Heart size normal. Mild left basilar opacity. Right upper lobe suture line. No acute bony abnormality. IMPRESSION: 1. Mild left basilar atelectasis and/or airspace disease. Reviewed, dictated and finalized at location R. COMMUNICATIONS OFFICER
--- NOTE | ~2025-02-06 | CT_ITS ---
CTA CHEST CLINICAL HISTORY: Lt. side chest pain/ Shortness of breath/ Elevated D-dimer . COMPARISON: Chest x-ray 02/06/2025 TECHNIQUE: Helical CTA performed from thoracic inlet to upper abdomen 100 mL Omnipaque 350 Coronal, sagittal reformats. Multiplanar MIPS CT images acquired with automatic exposure control for dose reduction DLP: 221 mGy-cm FINDINGS: Pulmonary arteries: No PE. Thoracic Aorta: No dissection or aneurysm. Atherosclerotic disease. Heart/pericardium: Coronary artery calcifications. RV/LV ratio: Normal. Lungs/Pleura: Biapical scarring. Right upper lobe suture line. Trace left pleural fluid, overlying atelectasis Tracheobronchial tree: Bibasilar occlusive foci/mucous plugging. Nodes: No enlarged nodes. Bones: No acute bony abnormality. Soft tissues: Unremarkable. Visualized upper abdomen: Hepatomegaly, with steatosis. Small hiatal hernia. IMPRESSION: 1. No PE. 2. Trace left pleural fluid with overlying atelectasis. 3. Bibasilar bronchial mucus plugging. No associated pneumonia. Reviewed, dictated and finalized at location R. PER SHEETER
--- NOTE | 2025-02-06 09:38 | ECG_ITS ---
Test Date: 2025-02-06 09:46:58 Measurements Intervals [place] Rate: 73 P: 53 DE: 173 QRS: 42 QRSD: 87 T: 57 QT: 413 QTc: 458 Interpretive Statements SINUS RHYTHM MINIMAL ST DEPRESSION [0.025+ mV ST DEPRESSION] No previous ECG available for comparison Electronically Signed On 02-06-2025 12:07:11 [employer] by Emili Hodges M.D.
[2025-02-06 10:01] LABS: Hematocrit 39.5 % (35.0-42.0); Hemoglobin 12.9 g/dL (11.7-13.8); Immature Granulocyte Percent A 0.4 % (0.0-0.0); Lymphocytes Absolute Auto 0.74 K/mm3 (1.10-4.50); Mean Corpuscular HGB Conc 32.7 g/dL (32-36); Mean Corpuscular Hemoglobin 29.3 pg (27.0-31.0); Mean Corpuscular Volume 89.8 fL (78.0-102.0); Nucleated Red Blood Cells Absolute Auto 0.00 K/mm3 (0.00-0.00); Nucleated Red Blood Cells Perc 0.0 % (0-0.0); Platelet Count Result 291 K/mm3 (150-420); Red Blood Count 4.40 M/mm3 (4.20-5.40); White Blood Count 18.0 K/mm3 (4.8-10.8)
[2025-02-06] MEDS: KETOROLAC 30 MG/ML VIAL (*BKC) IV PUSH (10:01)
[2025-02-06] MEDS: ONDANSETRON INJ 4 MG/2 ML VIAL IV PUSH (10:02)
[2025-02-06] MEDS: METOPROLOL TARTRATE INJ 5 MG/5 ML VIAL IV PUSH (10:02)
[2025-02-06 10:15] LABS: Alanine Aminotransferase 18 U/L (6-35); Albumin Level 4.9 g/dL (3.5-5.1); Alkaline Phosphatase 136 U/L (38-126); Anion Gap 11 mmol/L (4-12); Aspartate Amino Transferase 41 U/L (14-36); Bilirubin,Total 0.6 mg/dL (0.2-1.3); Blood Urea Nitrogen 14 mg/dL (7-17); Calcium 9.3 mg/dL (8.4-10.2); Carbon Dioxide 24 mmol/L (22-30); Chloride 106 mmol/L (98-107); Estimated CRCL calculation 30 ml/min; Estimated Glomerular Filt Rate 41; Glucose 137 mg/dL (65-110); INR 0.9; Lipase 204 U/L (23-300); Osmolality Calculated 294 mOsm/kg (285-295); Partial Thromboplastin Time 24.5 Sec (23.9-30.70); Potassium 3.8 mmol/L (3.4-5.0); Prothrombin Time 10.3 Seconds (9.50-12.1); Sodium 141 mmol/L (137-145); Total Protein 8.6 g/dL (6.3-8.2)
[2025-02-06 10:19] LABS: Add Urine Microscopic? YES; Appearance Urine Clear (Clear); Glucose Urine UA Negative (Negative); Leukocyte Esterase Ur Negative LEU/UL (Negative); Nitrate Urine Negative (Negative); Specific Grav Ur 1.020 (1.010-1.020)
[2025-02-06 10:27] LABS: NT Pro B Type Natriuretic Pept 267 pg/mL (19.9-100); Troponin I < 0.012 ng/mL (0.000-0.034)
[2025-02-06 10:38] LABS: Influenza A QL RT-PCR Negative (Negative); Influenza B QL RT-PCR Negative (Negative); RSV RNA, RT-PCR Negative (Negative); SARS-CoV-2 RNA PCR Negative (Negative)
[2025-02-06] MEDS: SODIUM CHLORIDE 0.9% IV 1,000 ML 999 ML IV CONT (11:12)
--- NOTE | 2025-02-06 11:18 | ED.CHESTPAIN ---
HPI - Chest Pain General Chief Complaint: Chest Pain Stated Complaint: should & chest pain Time Seen by Provider: 02/06/25 09:43 Source: patient and family Mode of arrival: ambulatory Limitations: no limitations History of Present Illness HPI narrative: This is a 74-year-old female with a history of some partial right upper lung resection and history of nephrectomy with normal function kidney presents with chest discomfort reproducible with palpation and pain with inspiration. There is no nausea vomiting no abdominal pain no flank pain no dysuria hematuria no fever chills no diarrhea constipation. MD complaint: chest pain Onset (ago): day(s) Timing of current episode: episodic Prior episodes: No Onset: during rest Pain location: other (With deep breath and palpation) Pain radiation: none Severity: moderate Pain scale (0-10): 6 Related Data Home Medications ?Medication ?Instructions ?Recorded ?Confirmed ?Last Taken ?Type albuterol 90 mcg/actuation aerosol 90 mcg inhalation QID PRN 09/10/22 10/03/22 09/30/22 History inhaler shorteness of breath amlodipine 10 mg tablet 10 mg PO DAILY 09/10/22 10/03/22 10/03/22 History atorvastatin 10 mg tablet 10 mg PO DAILY 09/10/22 10/03/22 10/02/22 History citalopram 20 mg tablet 20 mg PO DAILY 09/10/22 10/03/22 10/03/22 History clonidine HCl 0.1 mg tablet 0.1 mg PO DAILY 09/10/22 10/03/22 10/03/22 History fluticasone furoate 200 1 inh inhalation DAILY 09/10/22 10/03/22 10/02/22 History mcg-vilanterol 25 mcg/dose inhalation powder levothyroxine 112 mcg tablet 112 mcg PO DAILY 09/10/22 10/03/22 10/03/22 History omeprazole 20 mg capsule,delayed 20 mg PO DAILY 09/10/22 10/03/22 10/02/22 History release cholecalciferol (vitamin D3) 50 50 mcg PO DAILY 09/25/22 10/03/22 09/30/22 History mcg (2,000 unit) capsule (Vitamin D3) Allergies Allergy/AdvReac Type Severity Reaction Status Date / Time codeine Allergy Unknown Unknown Verified 02/06/25 09:45 niacin AdvReac Swelling Verified 02/06/25 09:45 of Lip/Tongue/Throat Review of Systems Review of Systems: All systems reviewed & are unremarkable except as noted in HPI and below PMFSH Past Medical History Medical History Renal cell cancer s/p nephrectomy Osteoarthritis Asthma HTN (hypertension) Hyperlipidemia Social History Social History Smoking status: Former smoker Tobacco type: cigarettes Additional smoking assessment comments: 1.5 packs per day history Alcohol intake: current Drinks per week: 4 Substance use: never Substance use type: does not use Living arrangements: with family Spiritual care concerns: No Exam Const: General: healthy appearing and no acute distress Nutritional Appearance: well nourished Orientation/consciousness: patient oriented x3 Limitations: no limitations HENMT: Head: normal to inspection Neck: Neck: normal visual inspection, no lymphadenopathy and no meningeal signs Chest: Chest palpation & inspection: normal inspection of the chest Resp: Effort & Inspection: normal respiratory effort Auscultation: clear to auscultation bilaterally Cardio: Rate: regular rate Rhythm: regular rhythm GI: GI Palp: Yes Soft to palpation Auscultation: normal bowel sounds : General: Yes bladder normal to palpation Back/Spine/Pelvis: Back: no CVA tenderness Skin: General skin exam: normal color Rashes: no rashes Wounds: no wounds Neuro: General: patient oriented x3 and moves all extremities Extrem: General: normal to inspection, no clubbing, cyanosis or edema and no pedal edema Course Course Emergency Course: Pedicles to making narrative: The patient was evaluated by myself in the emergency department. History obtained from the patient who is an independent historian physical exam performed witnessed by nurse. Patient had an EKG which showed no acute ST or T changes chest x-ray showed left [place] [id number] rest of her blood work was unremarkable kidney functions showed a GFR of 41. The patient presented initially with elevated blood pressure systolic around 200 and received 5mg IV metoprolol and blood pressure has significantly improved to 1 50/65. Patient also received Toradol IV along with some Zofran and after assessment symptoms have improved. D-dimer performed was elevated and CTA to rule out pulmonary embolism performed which showed no PE, did show some atelectasis mild pleural effusion left lower lung field. Repeat assessment: The patient is doing well on repeated and repeat exam with no acute distress Symptoms have improved since arrival to the emergency department. Repeat vitals have improved Patient agrees with discussion after shared medical decision-making and agrees with discharge All questions answered to the patient's satisfaction. Advised follow-up with primary within next 3 to 5 days Patient provided with strict return precautions and to return to emergency department if any worsening symptoms. Vital Signs Vital signs: Vital Signs Temperature 36.4 C 02/06/25 09:37 Pulse Rate 87 02/06/25 09:37 Respiratory Rate 18 02/06/25 09:37 Blood Pressure 184/80 H 02/06/25 09:37 Pulse Oximetry 93 02/06/25 09:37 Oxygen Delivery Room Air 02/06/25 09:37 Temperature 36.4 C 02/06/25 09:37 Pulse Rate 57 L 02/06/25 10:46 Respiratory Rate 16 02/06/25 10:46 Blood Pressure 150/65 H 02/06/25 10:46 Pulse Oximetry 96 02/06/25 10:46 Oxygen Delivery Room Air 02/06/25 09:37 MDM - Chest Pain Lab Data 02/06/25 09:58 02/06/25 09:58 Labs: Lab Results 02/06/25 02/06/25 02/06/25 Range/Units 09:58 10:00 10:09 WBC 18.0 H (4.8-10.8) K/mm3 RBC 4.40 (4.20-5.40) M/mm3 Hgb 12.9 (11.7-13.8) g/dL Hct 39.5 (35.0-42.0) % MCV 89.8 (78.0-102.0) fL MCH 29.3 (27.0-31.0) pg MCHC 32.7 (32-36) g/dL RDW 12.9 (11.6-14.4) % Plt Count 291 (150-420) K/mm3 MPV 10.4 (9.2-11.8) fl Immature Gran % (Auto) 0.4 H (0.0-0.0) % Neut % (Auto) 89.8 H (50.0-70.0) % Lymph % (Auto) 4.1 L (18.0-42.0) % [place] % (Auto) 5.2 (2.0-11.0) % Eos % (Auto) 0.1 L (1.0-6.0) % Baso % (Auto) 0.4 (0.0-1.0) % Lymph # (Auto) 0.74 L (1.10-4.50) K/mm3 [place] # (Auto) 0.94 H (0.10-0.90) K/mm3 Eos # (Auto) 0.02 (0.02-0.50) K/mm3 Baso # (Auto) 0.07 (0.00-0.10) K/mm3 Abs Immat Gran (auto) 0.08 H (0.00-0.00) K/mm3 Absolute Neuts (auto) 16.12 H (1.70-7.20) K/mm3 Absolute Nucleated RBC 0.00 (0.00-0.00) K/mm3 Nucleated RBC % 0.0 (0-0.0) % PT 10.3 (9.50-12.1) Seconds INR 0.9 APTT 24.5 (23.9-30.70) Sec D-Dimer 1.25 H (0.19-0.50) mg/L Sodium 141 (137-145) mmol/L Potassium 3.8 (3.4-5.0) mmol/L Chloride 106 (98-107) mmol/L Carbon Dioxide 24 (22-30) mmol/L Anion Gap 11 (4-12) mmol/L BUN 14 (7-17) mg/dL Creatinine 1.27 H (0.7-1.0) mg/dL Estim Creat Clear Calc 30 ml/min Estimated GFR 41 L (59 - ) Glucose 137 H (65-110) mg/dL Calculated Osmolality 294 (285-295) mOsm/kg Calcium 9.3 (8.4-10.2) mg/dL Total Bilirubin 0.6 (0.2-1.3) mg/dL AST 41 H (14-36) U/L ALT 18 (6-35) U/L Alkaline Phosphatase 136 H (38-126) U/L Troponin I < 0.012 (0.000-0.034) ng/mL NT-Pro-B Natriuret Pep 267 H (19.9-100) pg/mL Total Protein 8.6 H (6.3-8.2) g/dL Albumin 4.9 (3.5-5.1) g/dL Lipase 204 (23-300) U/L Urine Color Light yellow (Yellow) Urine Appearance Clear (Clear) Urine pH 6.0 (5.0-8.0) Ur Specific [place] 1.020 (1.010-1.020) Urine Protein 2+ H (Negative) Urine Glucose (UA) Negative (Negative) Urine Ketones Negative (Negative) Ur Blood (Man) 1+ H (Negative) Urine Nitrate Negative (Negative) Urine Bilirubin Negative (Negative) Urine Urobilinogen 0.2 (0.2-1.0) mg/dL Leukocyte Esterase Rfl Negative (Negative) FANNIE/UL Urine RBC 0-2 (0-2) /hpf Urine WBC 0-3 (0-3) /hpf Ur Squamous Epith Cells Few (Few) /hpf Urine Bacteria Trace (None) /hpf Influenza A (RT-PCR) Negative (Negative) Influenza B (RT-PCR) Negative (Negative) RSV (RT-PCR) Negative (Negative) SARS-CoV-2 RNA (RT-PCR) Negative (Negative) Critical Care Time Critical Care Time Critical Care Time: No Discharge Plan Discharge Clinical Impression: Upper respiratory infection Qualifiers: URI type: unspecified URI Qualified Code(s): J06.9 - Acute upper respiratory infection, unspecified Patient Disposition: Home Condition: Stable Instructions: Antibiotic Form, Upper Respiratory Infection (ED) Additional Instructions: Advised patient to take medication as prescribed and to follow with some primary within the next 3 to 5 days further evaluation and treatment. Can take Tylenol for pain and discomfort. Patient Language: Mohawk Prescriptions: New azithromycin [Zithromax Z-[place]] 250 mg tablet See Rx Instructions .ROUTE .COMPLEX Qty: 6 0RF Rx Instructions: For 250 mg dose pack: take 500 mg today (day 1), then 250 mg for 4 days (days 2-5) No Action omeprazole 20 mg Capsule,Delayed Release(Dr/Ec) 20 mg PO DAILY albuterol 90 mcg/actuation Aerosol 90 mcg INHALATION QID PRN (Reason: shorteness of breath) clonidine HCl 0.1 mg Tablet 0.1 mg PO DAILY atorvastatin 10 mg Tablet 10 mg PO DAILY citalopram 20 mg Tablet 20 mg PO DAILY amlodipine 10 mg Tablet 10 mg PO DAILY levothyroxine 112 mcg Tablet 112 mcg PO DAILY fluticasone furoate-vilanterol 200-25 mcg/dose Blister With Device 1 inh INHALATION DAILY cholecalciferol (vitamin D3) [Vitamin D3] 50 mcg (2,000 unit) Capsule 50 mcg PO DAILY Follow-up/Referrals: Laine Echeverria MD [Primary Care Provider, Internal Medicine] Time of Disposition: 11:26
[2025-02-06] MEDS: AZITHROMYCIN 250 MG TABLET 500 MG PO (11:35)
== END 2025-02-06 11:49 | disposition home or self-care (01) ==
PROVIDERS: Emergency Provider Emergency Medicine; PCP Internal Medicine
DX: J06.9 Acute upper respiratory infection, unspecified (principal); I10 Essential (primary) hypertension; E78.5 Hyperlipidemia, unspecified; Z87.891 Personal history of nicotine dependence; Z20.822 Contact with and (suspected) exposure to COVID-19
CPT/HCPCS: 36415; 71045; 71275; 80053; 81001; 83690; 83880; 84484; 85025; 85380; 85610; 85730; 87637; 93005; 96361; 96374; 96375; 99284; A9270; J0616; J1885; J2405; J7030; Q9967

== ENCOUNTER 2025-02-09 09:55 | Outpatient (CLI) | payer MEDICARE, SELFPAY ==
--- NOTE | ~2025-02-09 | XR_ITS ---
EXAMINATION: XR chest 2V DATE: 02/09/2025 10:21 INDICATION: COPD. TECHNIQUE: frontal and lateral views of the chest were obtained. COMPARISON: Chest radiograph and CT dated 02/06/2025 FINDINGS: Mild biapical pleural-parenchymal scarring. Suture line at the right apex consistent with prior partial pneumonectomy. Persistent linear atelectasis/scarring at the lateral left mid to lower lung zone. No new airspace opacities, pulmonary edema, pleural effusion or pneumothorax. The cardiomediastinal silhouette is normal. Cholecystectomy clips in right upper quadrant. Moderate thoracic spondylosis. IMPRESSION: 1. Stable appearance of biapical pleural-parenchymal scarring and additional linear discoid atelectasis/scarring at the lateral left mid to lower lung zones. No acute cardiopulmonary disease. Reviewed, dictated and finalized at location A. ID LOADER IMPRESSION: 1. Stable appearance of biapical pleural-parenchymal scarring and additional li near discoid atelectasis/scarring at the lateral left mid to lower lung zones. No acute cardiopulmonary disease.
[2025-02-09 10:15] LABS: Hematocrit 39.7 % (35.0-42.0); Hemoglobin 13.0 g/dL (11.7-13.8); Mean Corpuscular HGB Conc 32.7 g/dL (32-36); Mean Corpuscular Hemoglobin 29.9 pg (27.0-31.0); Mean Corpuscular Volume 91.3 fL (78.0-102.0); Platelet Count Result 326 K/mm3 (150-420); Red Blood Count 4.35 M/mm3 (4.20-5.40); White Blood Count 9.5 K/mm3 (4.8-10.8)
[2025-02-09 10:28] LABS: Alanine Aminotransferase 17 U/L (6-35); Albumin Level 4.7 g/dL (3.5-5.1); Alkaline Phosphatase 106 U/L (38-126); Anion Gap 11 mmol/L (4-12); Aspartate Amino Transferase 37 U/L (14-36); Bilirubin,Total 0.4 mg/dL (0.2-1.3); Blood Urea Nitrogen 13 mg/dL (7-17); Calcium 9.6 mg/dL (8.4-10.2); Carbon Dioxide 25 mmol/L (22-30); Chloride 105 mmol/L (98-107); Estimated Glomerular Filt Rate 39; Glucose 102 mg/dL (65-110); Osmolality Calculated 292 mOsm/kg (285-295); Potassium 4.0 mmol/L (3.4-5.0); Sodium 141 mmol/L (137-145); Total Protein 8.2 g/dL (6.3-8.2)
== END 2025-02-09 09:56 | disposition home or self-care (01) ==
LOC: CHSLAB 09:58
PROVIDERS: PCP Internal Medicine; Visit Provider Nurse Practitioner Family
DX: J44.1 Chronic obstructive pulmonary disease with (acute) exacerbation (principal); R91.8 Other nonspecific abnormal finding of lung field
CPT/HCPCS: 36415; 71046; 80053; 85027